=== PATIENT | male | born 1965 | race Caucasian/White ===

== ENCOUNTER → 2020-04-23 11:26 | Outpatient (CLI) | payer OTHER, SELFPAY ==
[2020-04-23 14:02] LABS: Alanine Aminotransferase 114 IU/L (<50); Albumin 4.7 g/dL (3.5-5.0); Albumin Globulin Ratio 1.5 (1.0-2.8); Alkaline Phosphatase 86 U/L (38-126); Aspartate Aminotransferase 71 IU/L (17-59); BUN Creatinine Ratio 16.9 (6-22); Blood Urea Nitrogen 15 mg/dL (9-20); Calcium 9.7 mg/dL (8.4-10.2); Carbon Dioxide 27 mmol/L (22-32); Chloride 99 mmol/L (98-107); Creatine Kinase 118 U/L (55-170); Estimated Glomerular Filt Rate > 60.0 mL/min (>60); Globulin 3.2 g/dL (1.7-4.1); Glucose 87 mg/dL (70-100); HEMOLYSIS < 15 (0-50); Potassium 4.1 mmol/L (3.4-5.1); Sodium 137 mmol/L (137-145); Total Protein 7.9 g/dL (6.3-8.2)
== END ==
PROVIDERS: PCP Family Medicine; Referring Provider Family Medicine; Visit Provider Family Medicine
DX: R25.2 Cramp and spasm (principal)
CPT/HCPCS: 36415; 80053; 82550

== ENCOUNTER → 2020-08-01 10:05 | Outpatient (CLI) | payer OTHER, SELFPAY ==
[2020-08-01 12:26] LABS: Alanine Aminotransferase 64 IU/L (<50); Albumin 4.7 g/dL (3.5-5.0); Albumin Globulin Ratio 1.4 (1.0-2.8); Alkaline Phosphatase 69 U/L (38-126); Aspartate Aminotransferase 44 IU/L (17-59); BUN Creatinine Ratio 15.3 (6-22); Bilirubin Total 0.9 mg/dL (0.2-1.3); Blood Urea Nitrogen 13 mg/dL (9-20); Calcium 9.9 mg/dL (8.4-10.2); Carbon Dioxide 32 mmol/L (22-32); Chloride 97 mmol/L (98-107); Estimated Glomerular Filt Rate > 60.0 mL/min (>60); Globulin 3.3 g/dL (1.7-4.1); Glucose 95 mg/dL (70-100); HEMOLYSIS < 15 (0-50); Potassium 4.4 mmol/L (3.4-5.1); Sodium 135 mmol/L (137-145)
== END ==
PROVIDERS: PCP Family Medicine; Referring Provider Family Medicine; Visit Provider Family Medicine
DX: R79.89 Other specified abnormal findings of blood chemistry (principal)
CPT/HCPCS: 36415; 80053

== ENCOUNTER → 2020-10-04 07:08 | Outpatient (CLI) | payer OTHER, SELFPAY ==
[2020-10-04 08:07] LABS: Alanine Aminotransferase 57 IU/L (<50); Albumin 4.8 g/dL (3.5-5.0); Albumin Globulin Ratio 1.5 (1.0-2.8); Alkaline Phosphatase 71 U/L (38-126); Aspartate Aminotransferase 42 IU/L (17-59); Bilirubin Total 1.7 mg/dL (0.2-1.3); Blood Urea Nitrogen 16 mg/dL (9-20); Calcium 10.2 mg/dL (8.4-10.2); Carbon Dioxide 32 mmol/L (22-32); Chloride 97 mmol/L (98-107); Cholesterol 203 mg/dL (140-199); Estimated Glomerular Filt Rate > 60.0 mL/min (>60); Globulin 3.1 g/dL (1.7-4.1); Glucose 99 mg/dL (70-100); HDL Cholesterol 52 mg/dL (40-60); HEMOLYSIS < 15 (0-50); LDL Cholesterol Calculated 128 mg/dL (<100); Potassium 4.9 mmol/L (3.4-5.1); Sodium 135 mmol/L (137-145); Total Protein 7.9 g/dL (6.3-8.2); Triglycerides 117 mg/dL (35-150)
[2020-10-04 08:09] LABS: Creatinine Urine Random 94.1 mg/dL
[2020-10-04 08:14] LABS: Microalbumin Urine Random < 0.6 mg/dL (0-1.6)
== END ==
PROVIDERS: PCP Family Medicine; Referring Provider Family Medicine; Visit Provider Family Medicine
DX: E78.5 Hyperlipidemia, unspecified (principal); I10 Essential (primary) hypertension; R79.89 Other specified abnormal findings of blood chemistry
CPT/HCPCS: 36415; 80053; 80061; 82043; 82570

== ENCOUNTER → 2020-10-11 14:11 | Outpatient (CLI) | payer OTHER, SELFPAY ==
--- NOTE | 2020-10-11 14:11 | DI.US.S_ITS ---
PROCEDURE: US ABDOMEN LIMITED INDICATIONS: Elevated LFT and bilirubin TECHNIQUE: Real-time focused scanning was performed of the abdomen, with image documentation. COMPARISON: None. FINDINGS: Normal appearance of the liver. No gallstones identified. Normal gallbladder wall. No pericholecystic fluid. Negative sonographic Antoine sign. No biliary dilatation. Pancreas not well visualized. IMPRESSION: No source for elevated LFTs identified. Dictated by: Rommel Clemons [facility] Interpreted: Hema Duke MD on 10/11/2020 at 14:55 Approved by: Hema Duke M.D. on 10/11/2020 at 15:13
== END ==
PROVIDERS: PCP Family Medicine; Referring Provider Family Medicine; Visit Provider Family Medicine
DX: R79.89 Other specified abnormal findings of blood chemistry (principal)
CPT/HCPCS: 76705

== ENCOUNTER → 2020-10-16 06:58 | Outpatient (CLI) | payer OTHER, SELFPAY ==
[2020-10-16 08:03] LABS: Add Manual Diff / Slide Review NO; Basophils Absolute Auto 100 /uL (0-100); Eosinophils Absolute Auto 300 /uL (0-450); Eosinophils Percent Auto 6.3 % (2-4); Hematocrit 44.4 % (41-53); Hemoglobin 15.4 g/dL (13.5-17.5); Lymphocytes Absolute Auto 2100 /uL (1100-4500); Lymphocytes Percent Auto 41.6 % (25-40); Mean Corpuscular HGB Conc 34.7 % (30-36); Mean Corpuscular Hemoglobin 32.6 PG (26-34); Mean Corpuscular Volume 93.9 fL (80-100); Monocytes Absolute Auto 600 /uL (0-900); Monocytes Percent Auto 11.1 % (3-14); Neutrophils Absolute Auto 2000 /uL (1500-7000); Platelet Count 292 X10^3/uL (150-400); Red Blood Cell Count 4.73 X10^6/uL (4.5-5.9); Red Cell Distribution Width 12.4 % (11.6-14.8)
[2020-10-16 08:32] LABS: Bilirubin Total 1.1 mg/dL (0.2-1.3)
== END ==
PROVIDERS: PCP Family Medicine; Referring Provider Family Medicine; Visit Provider Family Medicine
DX: E80.6 Other disorders of bilirubin metabolism (principal); R79.89 Other specified abnormal findings of blood chemistry
CPT/HCPCS: 36415; 82247; 82248; 85025

== ENCOUNTER → 2020-11-22 09:28 | Outpatient (CLI) | payer OTHER, SELFPAY ==
[2020-11-22 11:26] LABS: COVID19 -Nasal RAPID Negative (Negative)
== END ==
PROVIDERS: PCP Family Medicine; Visit Provider Surgery
DX: Z20.822 Contact with and (suspected) exposure to COVID-19 (principal)
CPT/HCPCS: 87635; C9803

== ENCOUNTER 2020-11-25 08:10 | Day surgery (SDC) | payer OTHER, SELFPAY ==
[2020-11-25 08:35] VITALS: BP 136/90; PULSE 62; RESP 16; TEMP 36.1; O2SAT 98; BMI 25.5
[2020-11-25] MEDS: LACTATED RINGERS 1,000 ML 200 ML IV (08:35)
--- NOTE | 2020-11-25 09:01 | PM.HP.1 ---
History of Present Illness History of Present Illness Date Patient Seen: 11/25/20 Time Patient Seen: 09:02 Chief complaint: SCREENING COLONOSCOPY Narrative: The patient presents for colorectal sreening. He had a previous colonoscopy 4 years ago that was significant for multiple benign polyps.. No personal or family history of colon cancer. On further history denies any recent gastrointestinal symptoms. No nausea, vomiting, abdominal pain, loss of appetite, unexplained weight loss, change in bowel habits, diarrhea, constipation, melena, hematochezia, or bright red blood per rectum. Patient History Medical History Anxiety and depression (~2019) Chronic back pain (~2002) Colon polyps (~2016) Elevated LFTs Hyperlipidemia Hypertension Lumbar spine pain (~2002) Mumps Shoulder pain (~2009) Tinnitus (~2002) Surgical History Anesthesia History of lumbar laminectomy (~2004) History of shoulder surgery (~2014) Family & Social History Family History Father History of heart disease Social History: household members spouse Tobacco & Substance use: Smoking Status Never smoker alcohol intake current alcohol intake frequency 0-2 drinks per day Substance Use Type does not use Meds Home Medications and Allergies Home Medications Medication Instructions Recorded Confirmed Type acetaminophen 120 mg-codeine 12 10 ml PO Q4-6H PRN 08/01/20 11/25/20 History mg/5 mL oral solution cyclobenzaprine 10 mg tablet 10 mg PO TID PRN 08/01/20 11/25/20 History ibuprofen 600 mg tablet 600 mg PO Q8H PRN 08/01/20 11/25/20 History lisinopril 10 1 tab PO DAILY 08/01/20 11/25/20 History mg-hydrochlorothiazide 12.5 mg tablet mecobalamin (vitamin B12) 1,000 1,000 mcg PO DAILY 08/01/20 11/25/20 History mcg chewable tablet multivitamin 1 tab PO DAILY 08/01/20 11/25/20 History gabapentin 300 mg PO BEDTIME 11/25/20 11/25/20 History Allergies Allergy/AdvReac Type Severity Reaction Status Date / Time No Known Drug Allergies Allergy Verified 11/25/20 08:28 Review of Systems Review of Systems ROS: Yes All systems reviewed with the patient and are negative except as otherwise documented Exam Vital Signs (past 8 hours): - 11/25/20 08:35 Temperature 97 F L Pulse Rate 62 Respiratory Rate 16 Blood Pressure 136/90 Pulse Oximetry 98 Oxygen Delivery Method Room Air Narrative Exam Narrative: GENERAL-well developed adult male, no acute distress HEENT-no scleral icterus, hearing intact NECK-no JVD, trachea midline CVS- regular rate, no peripheral edema RESP-unlabored respiratory effort, no audible wheezing GI-soft, nontender nondistended MSK-no cyanosis or clubbing, extremities without deformity SKIN-warm, dry NEURO-alert and oriented, no focal deficits PYSCH-Appropriate mood and affect Assessment & Plan Assessment & Plan narrative: The patient requires colorectal screening and colonoscopy is recommended. Technical details were discussed. Risks, benefits, alternatives explained. Risks including but not limited to myocardial infarction, aspiration, bleeding, pain, missed lesion, incomplete examination, need for further radiographic studies, colonic perforation, and need for major abdominal surgery were discussed. All questions were answered to their satisfaction, and they are in agreement with this plan.
[2020-11-25] MEDS: fentaNYL 250 MCG/5 ML INJ IV (09:05)
[2020-11-25] MEDS: MIDAZOLAM 5 MG/5 ML VIAL IV (09:05)
[2020-11-25 09:30] VITALS: BP 123/82; PULSE 53; RESP 12; TEMP 36.1; O2SAT 96
--- NOTE | 2020-11-25 09:31 | PM.OP.ENDO ---
Operative Date/Time/Diagnoses Date of procedure: 11/25/20 Time of procedure: 09:31 Pre-op diagnosis: Personal history of colonic polyps Post-op diagnosis: same Procedure & Clinicians Study performed: Colonoscopy Same procedure as scheduled: Yes Indications: Personal history of colonic polyps Surgeon: Jass Nieves Procedure Notes Procedure in detail: Medications: Conscious sedation using 5mg IV midazolam and 150mcg IV of fentanyl The history and physical was performed/updated and the patient is ASA class is 2. The procedure was discussed in detail with the patient. Potential risks complications including infection, bleeding, missed diagnosis, perforation, need for surgery, and were explained. Their questions were answered and informed consent was obtained. Patient was brought to the procedure room and placed standard monitoring equipment. The patient's vital signs were monitored continuously throughout the entire procedure. Prior to starting time-out was performed. The patient was placed in the left lateral recumbent position. Procedural sedation was administered. Examination began with a thorough inspection of the perianal area there was no evidence of fissures, fistulae, external hemorrhoids or cutaneous malignancy. The colonoscopy scope was then placed into the anal canal and was advanced to the cecum, which was identified by the ileocecal valve, the appendiceal orifice and the confluence of the taenia. The scope was then slowly withdrawn examining colon thoroughly in all directions, irrigating it of any residual stool. -No masses or polyps -Sigmoid diverticulosis The patient tolerated the procedure well. They will be discharged once criteria are met. The prep was of good/excellent quality. The withdrawl time was 7 minutes. The sedation time was 20 minutes. Impression: Normal colonoscopy Post-procedure Recommendations: Colonscopy in 10 years Disposition: same day surgery
[2020-11-25 09:35] VITALS: BP 113/68; PULSE 50; RESP 12; O2SAT 95
[2020-11-25 09:40] VITALS: BP 108/73; PULSE 51; RESP 14; TEMP 36.1; O2SAT 98
[2020-11-25 10:11] VITALS: BP 101/65; PULSE 51; RESP 13; TEMP 35.8; O2SAT 98
== END 2020-11-25 10:17 | disposition home or self-care (01) ==
PROVIDERS: PCP Family Medicine; Referring Provider Family Medicine; Visit Provider Surgery
PROC: 0DJD8ZZ Inspection of Lower Intestinal Tract, Via Natural or Artificial Opening Endoscopic (ICD-10-PCS; CPT 45378; principal; 2020-11-25 09:15)
DX: Z12.11 Encounter for screening for malignant neoplasm of colon (principal); Z86.010 Personal history of colon polyps; F41.9 Anxiety disorder, unspecified; F32.9 Major depressive disorder, single episode, unspecified; E78.5 Hyperlipidemia, unspecified; I10 Essential (primary) hypertension; K57.30 Diverticulosis of large intestine without perforation or abscess without bleeding
CPT/HCPCS: 45378; 99152; J2250; J3010

== ENCOUNTER → 2021-08-18 12:15 | Outpatient (CLI) | payer OTHER, SELFPAY ==
--- NOTE | 2021-08-18 12:19 | DI.MRI.S_ITS ---
PROCEDURE: MR SHOULDER LT WO CON INDICATIONS: BURSITIS TECHNIQUE: Noncontrast oblique coronal T2 fast spin echo with fat saturation, oblique sagittal T1 spin echo and T2 fast spin echo with fat saturation, axial T1 spin echo and T2 fast spin echo with fat saturation through the shoulder. COMPARISON: [facility], CR, XR SHOULDER 2+ VIEWS LEFT, 05/02/2021, 9:45. FINDINGS: Image quality: Excellent. Rotator cuff: Low-grade articular and bursal surface partial thickness tear involving distal supraspinatus at its insertion on the humeral head is seen extending to musculotendinous junction. Distal infraspinatus tendinosis is noted. Distal subscapularis tendinosis and low-grade intrasubstance partial-thickness tear is seen. No full-thickness rotator cuff tendon rupture. infraspinatus, and subscapularis tendons appear intact throughout. Sagittal images demonstrate no significant muscle atrophy. Bones and bursae: No bone marrow contusions or fractures. Acromioclavicular joint space is preserved. Glenohumeral joint osteoarthritic changes are seen with joint space narrowing. Subcortical cyst formation in superior anterior glenoid is seen Small to moderate amount of subacromial subdeltoid bursal fluid is seen. No gross loose bodies. Capsule and soft tissues: Labrum is grossly intact. The glenohumeral ligaments are intact. The long head of the biceps tendon demonstrates normal location and morphology. The rotator interval appears normal, without fibrosis. The coracohumeral ligament is normal in thickness. IMPRESSION: 1. Tendinosis and low-grade articular and bursal surface partial thickness tear involving distal supraspinatus. Distal infraspinatus tendinosis. Tendinosis and very low-grade intrasubstance partial-thickness tear involving distal subscapularis. No full-thickness rotator cuff tendon rupture. 2. Mild glenohumeral joint osteoarthritis. No marrow edema. No fracture or dislocation. 3. No definite focal labral tear is seen. 4. Small to moderate amount of subacromial subdeltoid bursal fluid. Dictated by: Milan Garcia M.D. on 08/18/2021 at 13:48 Approved by: Milan Garcia M.D. on 08/18/2021 at 14:03
== END ==
PROVIDERS: PCP Internal Medicine; Referring Provider Orthopaedic Surgery; Visit Provider Orthopaedic Surgery
DX: M75.52 Bursitis of left shoulder (principal); M19.012 Primary osteoarthritis, left shoulder; M75.112 Incomplete rotator cuff tear or rupture of left shoulder, not specified as traumatic
CPT/HCPCS: 73221

== ENCOUNTER → 2021-10-14 10:33 | Outpatient (CLI) | payer OTHER, SELFPAY ==
[2021-10-14 13:11] LABS: COVID19 -Nasal RAPID Negative (Negative)
== END ==
PROVIDERS: PCP Internal Medicine; Referring Provider Orthopaedic Surgery; Visit Provider Family Medicine Sleep Medicine
DX: Z20.822 Contact with and (suspected) exposure to COVID-19 (principal)
CPT/HCPCS: 87635; C9803

== ENCOUNTER 2021-10-16 06:11 | Day surgery (SDC) | payer OTHER, SELFPAY ==
[2021-10-13 15:11] VITALS: BMI 25.7
[2021-10-16] VITALS (7 sets, daily range): BP systolic 132–148; BP diastolic 56–86; PULSE 52–85; RESP 16–18; TEMP 35.9–36.6; O2SAT 94–100; BMI 25.7
--- NOTE | 2021-10-16 07:34 | PM.PREOP ---
Pre-operative Note COVID-19 Criteria for continued procedure: Possibility delay results in more complex future surgery or treatment, Increased loss of function, Continuing or worsening of significant or severe pain and Delay expected to result in less-positive ultimate med/surg outcome Interval Note History & Physical reviewed/Exam performed by Physician: Yes Changes to H&P: No
[2021-10-16] MEDS: CEFAZOLIN 2 GM/20 ML SYRINGE IV (08:05)
--- NOTE | 2021-10-16 08:27 | SUR.OPER ---
Beach chair with [employer]tron shoulder positioner. Lower body on padded OR bed. Head in foam padded head cradle, secured with straps. Non-operative arm secured <90 degrees abduction. Pillow under knees. Safety belt at thigh. Cloth tape over blanket over lower legs.
[2021-10-16] MEDS: BUPIVACAINE 0.5% (PF) 30 ML, EPINEPHrine 0.15 MG INJ (08:34)
[2021-10-16] MEDS: SODIUM CHLORIDE IRRIG SOLUTION 3,000 ML, EPINEPHrine 1 MG IRR (08:36)
--- NOTE | 2021-10-16 09:10 | PM.OP.1 ---
Operative Date/Time/Diagnoses Date of procedure: 10/16/21 Time of procedure: 08:00 Pre-op diagnosis: Left shoulder partial rotator cuff tear as well as impingement Post-op diagnosis: same (Mild partial rotator cuff tear signs of previous anterior labral repair) Procedure & Clinicians Procedure: Left shoulder arthroscopic extensive debridement as well as subacromial decompression with blockage of suprascapular nerve Same procedure as scheduled: Yes Indications: Left shoulder pain unresponsive to conservative treatment with MRI findings consistent with partial rotator cuff tear Surgeon: Armando Cannon Risk Consulting Treasury Director: Fatmata Lowe Anesthesia Type: General Operative Notes Findings: No sign of any sign of articular sided partial rotator cuff tear. Patient had some mild fraying to the bursal aspect of the rotator cuff. No sign of any high-grade tears or full-thickness tears. Patient showed signs of a previous anterior labral repair. Some of that suture material had cut out of the labrum was still attached to the glenoid. The anterior-inferior labrum was intact with no sign of any Bankart tear. Some tearing to the glenohumeral ligament anteriorly. No sign of any significant SLAP tear. No sign of any proximal biceps tearing. Did have some loose suture material in the glenohumeral joint but no sign of any loose bodies. Patient did have arthritic changes to the glenoid as well as humeral head. Had progressed more on the glenoid aspect particularly to the anterior aspect of the glenoid. Subacromial space as mentioned above showed some partial tearing to the bursal aspect of the rotator cuff. Signs of a previous distal clavicle excision. Possible previous subacromial decompression but still some signs of impingement lesions in the acromial arch. Closure Type: primary Estimated Blood Loss (mL): 5 Procedure in detail: On date of service, Patient was met in the holding area. The operative site was signed and witnessed by the OR staff. The surgeries once again discussed with the patient and any remaining questions they had were answered fully. Patient was taken back to the operating theater and placed on the operating table in a supine position. Great care was taken to ensure that all bony prominences were properly padded. Patient was then placed into the beach chair position. The head and neck were properly positioned and secured. A timeout was performed verifying patient's name, procedure, and the operative site. The upper extremity was then prepped and draped in the normal sterile fashion. Previously, the bony anatomy and portal sites were marked out as well as injected with Marcaine with epinephrine. An 11 blade was used to make an incision in the posterior aspect of the shoulder. The camera was placed, and a diagnostic shoulder scope was performed. Findings listed above. Next under direct visualization, a anterior portal was made. A grasper was brought in through the anterior portal and the loose suture material was removed. Shoulder was stressed and there was no sign of any anterior translation. No sign of any obvious recurrent Bankart tear. Shaver was used to debride the degenerative changes to the labrum as well as the shaver was used to debride some of the tearing of the glenohumeral ligament. Next the camera was placed into the subacromial space. A lateral portal was obtained under direct visualization. A combination of the shaver and vapor wand, a debridement of the inflamed tissue as well as inflamed bursa was performed. The lateral gutter was also cleaned out. This gave us good visualization of the bursal aspect of the rotator cuff as well as the acromial arch. There was an obvious impingement lesion in the acromial arch. Shaver was used to remove any inflamed bursal tissue in the subacromial space as well as the subdeltoid space. Shaver was also used to debride the partial tearing to the bursal aspect of the rotator cuff. Next we turned our attention to the subacromial decompression. Next, a mechanical rasp was then used to do a subacromial decompression. This allowed us to convert the acromion to a type I acromial. This also allowed us to shave down the bony lesion in the acromial space. The rasp was placed into the lateral portal as well as the anterior portal in order to do a complete subacromial decompression. We next turned our attention to the distal clavicle. Using the shaver in the vapor wand we were able to clean out all the soft tissue around the distal clavicle as well as into the a.c. joint. This gave us good visualization of the AC joint. Patient had signs of a previous distal clavicle excision and there was still good space between the distal clavicle and acromion. Did not see any signs of any recurrent AC joint arthritis. Shoulder was taken through range of motion and no signs of any additional impingement. The bursal aspect of the rotator cuff was free of any high-grade tears or full-thickness tears. A shaver had been previously used to debride any mild partial tearing to the bursal aspect of the rotator cuff. Next, the suprascapular nerve was blocked. Patient's shoulder was then cleaned dried and dressed and patient was taken to the PACU in stable condition. Complications: none Post-operative Condition: stable Disposition: PACU Plan for aftercare: Patient will follow our postoperative protocol for subacromial decompression
[2021-10-16] MEDS: OXYCODONE IR 5 MG TABLET PO (09:50)
--- NOTE | 2021-10-16 10:07 | SUR.PHASEII ---
discharge instructions reviewed with pt and he verbalized understanding.
== END 2021-10-16 10:25 | disposition home or self-care (01) ==
PROVIDERS: PCP Internal Medicine; Referring Provider Internal Medicine; Visit Provider Orthopaedic Surgery
PROC: (CPT 29827; principal; 2021-10-16 07:45)
DX: M75.112 Incomplete rotator cuff tear or rupture of left shoulder, not specified as traumatic (principal); M75.42 Impingement syndrome of left shoulder; I10 Essential (primary) hypertension
CPT/HCPCS: 29823; 29826; J0171; J0690; J1100; J2250; J2704; J3010

== ENCOUNTER → 2022-04-17 09:16 | Outpatient (CLI) | payer OTHER, SELFPAY ==
[2022-04-17 11:42] LABS: Add Manual Diff / Slide Review NO; Basophils Absolute Auto 100 /uL (0-100); Basophils Percent Auto 1.2 % (0-2); Eosinophils Absolute Auto 300 /uL (0-450); Eosinophils Percent Auto 6.6 % (2-4); Hematocrit 45.9 % (41-53); Lymphocytes Absolute Auto 1800 /uL (1100-4500); Lymphocytes Percent Auto 36.1 % (25-40); Mean Corpuscular HGB Conc 34.8 % (30-36); Mean Corpuscular Hemoglobin 32.9 PG (26-34); Mean Corpuscular Volume 94.4 fL (80-100); Monocytes Absolute Auto 500 /uL (0-900); Monocytes Percent Auto 10.7 % (3-14); Neutrophils Absolute Auto 2300 /uL (1500-7000); Neutrophils Percent Auto 45.4 % (50-75); Platelet Count 281 X10^3/uL (150-400); Red Blood Cell Count 4.87 X10^6/uL (4.5-5.9); Red Cell Distribution Width 12.5 % (11.6-14.8); White Blood Cell Count 5.1 X10^3/uL (4.5-11.0)
[2022-04-17 12:02] LABS: HEMOLYSIS < 15 (0-50); Iron 192 ug/dL (49-181)
[2022-04-17 12:03] LABS: Alanine Aminotransferase 63 IU/L (<50); Albumin 4.6 g/dL (3.5-5.0); Albumin Globulin Ratio 1.4 (1.0-2.8); Alkaline Phosphatase 57 U/L (38-126); Aspartate Aminotransferase 40 IU/L (17-59); BUN Creatinine Ratio 13.4 (6-22); Bilirubin Total 1.1 mg/dL (0.2-1.3); Blood Urea Nitrogen 11 mg/dL (9-20); Calcium 9.4 mg/dL (8.4-10.2); Carbon Dioxide 28 mmol/L (22-32); Chloride 101 mmol/L (98-107); Cholesterol 230 mg/dL (140-199); Estimated Glomerular Filt Rate > 60 mL/min (>60); Globulin 3.3 g/dL (1.7-4.1); Glucose 92 mg/dL (70-100); HDL Cholesterol 45 mg/dL (40-60); HEMOLYSIS < 15 (0-50); LDL Cholesterol Calculated 160 mg/dL (<100); Potassium 4.3 mmol/L (3.4-5.1); Sodium 139 mmol/L (137-145); Total Protein 7.9 g/dL (6.3-8.2); Triglycerides 126 mg/dL (35-150)
[2022-04-17 12:13] LABS: Percent Iron Saturation 49 % (20-50); Total Iron Binding Capacity 390 ug/dL (261-462); Transferrin 284 mg/dL (206-381)
[2022-04-17 12:33] LABS: Prostate Specific Antigen 0.554 ng/mL (0.10-4.00)
[2022-04-17 12:52] LABS: Vitamin B12 500 pg/mL (239-931)
== END ==
PROVIDERS: PCP Family Medicine; Referring Provider Family Medicine; Visit Provider Family Medicine
DX: D64.9 Anemia, unspecified (principal); E78.5 Hyperlipidemia, unspecified; I10 Essential (primary) hypertension; Z00.00 Encounter for general adult medical examination without abnormal findings
CPT/HCPCS: 36415; 80053; 80061; 82607; 83540; 83550; 84153; 85025

== ENCOUNTER → 2023-01-18 09:10 | Outpatient (CLI) | payer OTHER, SELFPAY ==
--- NOTE | 2023-01-18 09:14 | DI.RAD.S_ITS ---
PROCEDURE: XR LUMBAR SPINE MIN 4V INDICATIONS: low back pain TECHNIQUE: 5 views of the lumbar spine were acquired, including bilateral oblique views. COMPARISON: None. FINDINGS: Bones: 5 nonrib-bearing vertebrae are present. There is normal bony alignment. No acute vertebral body compression fractures. Multilevel spondylosis. Minimal disc space loss at L4-5 and L5-S1 with associated degenerative endplate changes and anterior osteophyte formation. Mild mid and lower lumbar facet arthropathy. No suspicious bony lesions. Soft tissues: Overlying bowel gas pattern is normal. No suspicious soft tissue calcifications. Oblique images: No pars defects. IMPRESSION: Lumbar spine without acute osseous abnormalities. Mild multilevel lumbar spondylosis most pronounced at L4-5 and L5-S1. Dictated by: Viktor Osei M.D. on 01/18/2023 at 11:31 Approved by: Viktor Osei M.D. on 01/18/2023 at 11:33
== END ==
PROVIDERS: PCP Family Medicine; Referring Provider Anesthesiology; Visit Provider Anesthesiology
DX: M47.816 Spondylosis without myelopathy or radiculopathy, lumbar region (principal); M47.817 Spondylosis without myelopathy or radiculopathy, lumbosacral region; M54.50 Low back pain, unspecified
CPT/HCPCS: 72110

== ENCOUNTER 2023-01-27 13:50 | Outpatient (CLI) | payer OTHER, SELFPAY ==
--- NOTE | 2023-01-27 13:51 | DI.RAD.S_ITS ---
PROCEDURE: PAIN L INTERLAMINAR/CAUDAL INJ INDICATIONS: RADICULOPATHY COMPARISON: [facility], CR, XR LUMBAR SPINE MIN 4V, 01/18/2023, 9:09. FINDINGS: Fluoroscopic spot filming was performed to verify placement of spinal needles at the sacrum level(s), as labeled on the films. Appropriate location(s) of the needle tip(s) was confirmed by injection of iodinated contrast. IMPRESSION: Fluoroscopy for pain management. Dictated by: Adama Carr M.D. on 01/27/2023 at 15:16 Approved by: Adama Carr M.D. on 01/27/2023 at 15:16
[2023-01-27 14:02] VITALS: BP 129/82; PULSE 61; RESP 18; TEMP 36.2; O2SAT 98
[2023-01-27 14:30] VITALS: BP 142/83; PULSE 58; RESP 24; O2SAT 98
[2023-01-27] MEDS: DEXAMETHASONE 10 MG/ML VIAL 20 MG INJ (14:33)
[2023-01-27] MEDS: IOPAMIDOL 15 ML VIAL 3 ML INJ (14:34)
[2023-01-27 14:35] VITALS: BP 149/89; PULSE 57; RESP 12; O2SAT 98
[2023-01-27] MEDS: BUPIVACAINE 0.25% (PF) VIAL 2 ML INJ (14:35)
[2023-01-27 14:40] VITALS: BP 140/89; PULSE 59; RESP 14; O2SAT 98
[2023-01-27 14:46] VITALS: BP 165/86; PULSE 57; RESP 18; O2SAT 98
--- NOTE | 2023-01-27 14:49 | P.PCN_ITS ---
Date/Time/Diagnoses Date of procedure: 01/27/23 Time of procedure: 14:30 Procedure Notes Physician: Javier Zamora Total Fluoroscopy time (seconds): 14 Total sedation minutes: 0 Procedure in detail & Post-procedure care: Caudal Epidural Steroid Injection Indications: Luis Manuel is presenting for treatment of lumbar radiculopathy with low back and leg pain. Preoperative diagnosis: Lumbar radiculopathy Postoperative diagnosis: Same Focused Examination: Ax3 Mood and affect are normal Vital Signs: VSS Consent: Following review of allergies and potential side effects/complications, including, but not necessarily limited to, infection, allergic reaction, local tissue breakdown, stroke, temporary or permanent nerve injury, paralysis, and possible , the patient indicated that they understood and agreed to proceed.? An informed consent document was signed by the patient, witnessed by a nurse and placed in the patient's chart.? Additionally, other treatment options including medications and physical therapy were reviewed with the patient. All questions were answered. Site was then marked. Anesthesia: Local Position: Prone Monitoring: NIBP, Pulse oximetry, 3 lead EKG Needle used: 17 gauge Touhy with 19 gauge TheraCath Epidural Catheter Contrast: Isovue 300-M 2mL Injectate: Dexamethasone 15 mg with 0.25% bupivacaine 2 mL and normal saline 1.5 mL Technique: The skin was prepped with chloraprep and then draped in a sterile fashion. Time out was performed as per protocol. Oxygen applied via NC. The entry point for entering/approaching the epidural space by a caudal approach through the sacral hiatus was identified. Skin and subcutaneous structures of the needle entry site was then infiltrated with 3 mL of lidocaine 1%. Under AP and lateral control, the needle was guided through the sacral hiatus to the S3 level. The catheter was then advanced to L5 using intermittent fluoroscopy. Contrast was then injected and the spread was consistent with the epidural space. There was no evidence for intravascular or intrathecal uptake. After negative aspiration, the above-mentioned injectate was then slowly administered and the needle withdrawn. The patient expressed no unusual discomfort or paresthesias during needle positioning or injection. Band-Aids applied to injection sites. EBL: less than 1 ml Complications: None Post Procedure: Patient was taken to the recovery and monitored. The patient was provided a Pain Log to continue to record the patient's response to the target- specific procedure prior to the patient's follow-up visit with the referring physician. Patient was stable upon discharge. Detailed post procedure instructions were provided. Patient was asked to call in the event of worsening pain, fever, weakness, numbness or bladder or bowel incontinence.
== END 2023-01-27 14:52 | disposition home or self-care (01) ==
LOC: RAD 13:50
PROVIDERS: PCP Family Medicine; Referring Provider Anesthesiology; Visit Provider Anesthesiology
DX: M54.16 Radiculopathy, lumbar region (principal)
CPT/HCPCS: 62323; J1100; J3490

== ENCOUNTER → 2023-02-08 07:04 | Outpatient (CLI) | payer OTHER, SELFPAY ==
[2023-02-08 08:31] LABS: Alanine Aminotransferase 55 IU/L (<50); Albumin 4.4 g/dL (3.5-5.0); Albumin Globulin Ratio 1.6 (1.0-2.8); Alkaline Phosphatase 61 U/L (38-126); Aspartate Aminotransferase 34 IU/L (17-59); BUN Creatinine Ratio 16.5 (6-22); Bilirubin Total 1.3 mg/dL (0.2-1.3); Blood Urea Nitrogen 14 mg/dL (9-20); Calcium 9.4 mg/dL (8.4-10.2); Carbon Dioxide 29 mmol/L (22-32); Chloride 98 mmol/L (98-107); Cholesterol 250 mg/dL (140-199); Estimated Glomerular Filt Rate > 60 mL/min (>60); Globulin 2.8 g/dL (1.7-4.1); Glucose 98 mg/dL (70-100); HDL Cholesterol 47 mg/dL (40-60); HEMOLYSIS < 15 (0-50); LDL Cholesterol Calculated 161 mg/dL (<100); Potassium 4.5 mmol/L (3.4-5.1); Sodium 134 mmol/L (137-145); Total Protein 7.2 g/dL (6.3-8.2); Triglycerides 209 mg/dL (35-150)
[2023-02-08 08:32] LABS: HEMOLYSIS < 15 (0-50); Iron 222 ug/dL (49-181)
[2023-02-08 08:42] LABS: Percent Iron Saturation 58 % (20-50); Total Iron Binding Capacity 380 ug/dL (261-462); Transferrin 266 mg/dL (206-381)
== END ==
PROVIDERS: PCP Family Medicine; Referring Provider Family Medicine; Visit Provider Family Medicine
DX: E78.5 Hyperlipidemia, unspecified (principal); D64.9 Anemia, unspecified
CPT/HCPCS: 36415; 80053; 80061; 83540; 83550

== ENCOUNTER → 2023-06-19 08:11 | Outpatient (CLI) | payer OTHER, SELFPAY ==
[2023-06-19 08:57] LABS: Alanine Aminotransferase 41 IU/L (<50); Albumin 4.4 g/dL (3.5-5.0); Albumin Globulin Ratio 1.6 (1.0-2.8); Alkaline Phosphatase 52 U/L (38-126); Aspartate Aminotransferase 36 IU/L (17-59); BUN Creatinine Ratio 13.4 (6-22); Bilirubin Total 1.4 mg/dL (0.2-1.3); Blood Urea Nitrogen 11 mg/dL (9-20); Calcium 9.7 mg/dL (8.4-10.2); Carbon Dioxide 29 mmol/L (22-32); Chloride 93 mmol/L (98-107); Cholesterol 194 mg/dL (140-199); Estimated Glomerular Filt Rate > 60 mL/min (>60); Globulin 2.8 g/dL (1.7-4.1); Glucose 99 mg/dL (70-100); HDL Cholesterol 45 mg/dL (40-60); HEMOLYSIS < 15 (0-50); LDL Cholesterol Calculated 117 mg/dL (<100); Potassium 4.4 mmol/L (3.4-5.1); Sodium 130 mmol/L (137-145); Total Protein 7.2 g/dL (6.3-8.2); Triglycerides 162 mg/dL (35-150)
[2023-06-19 08:59] LABS: HEMOLYSIS < 15 (0-50); Iron 208 ug/dL (49-181)
[2023-06-19 09:10] LABS: Percent Iron Saturation 53 % (20-50); Total Iron Binding Capacity 396 ug/dL (261-462); Transferrin 304 mg/dL (206-381)
== END ==
PROVIDERS: Family Provider Internal Medicine; PCP Internal Medicine; Referring Provider Family Medicine; Visit Provider Family Medicine
DX: R79.89 Other specified abnormal findings of blood chemistry (principal); E78.5 Hyperlipidemia, unspecified; I10 Essential (primary) hypertension
CPT/HCPCS: 36415; 80053; 80061; 83540; 83550

== ENCOUNTER → 2023-07-20 13:12 | Outpatient (CLI) | payer OTHER, SELFPAY ==
--- NOTE | 2023-07-20 13:14 | DI.MRI.S_ITS ---
PROCEDURE: MR LUMBAR SPINE WO CON INDICATIONS: Lumbar radiculopathy TECHNIQUE: Noncontrast sagittal T1 spin echo and T2 fast echo, sagittal STIR, and T2 fast spin echo through the lumbar spine. In cases with scoliosis, additional coronal T2 fast spin echo may be performed. COMPARISON: [facility], MR, MR LUMBAR SPINE WITH/WITHOUT CONTRAST, 12/18/2020, 16:18. [facility], MR, MR LUMBAR SPINE WITHOUT CONTRAST, 09/23/2019, 8:18. [facility], CR, XR LUMBAR SPINE MIN 4V, 01/18/2023, 9:09. FINDINGS: Image quality: Excellent. Alignment and Curvature: There is minimal retrolisthesis seen at the L5-S1 level. Bone Marrow: Marrow is of normal overall signal. No acute vertebral body compression fractures. Spinal Cord: Conus medullaris terminates at the L1 level. Visualized cord demonstrates normal signal and size. Paraspinous Soft Tissues: No paravertebral masses. Incidental note is made of a retroaortic left renal vein. T12-L1: Normal appearance. L1-L2: Reactive marrow endplate changes are seen anteriorly, which are hyperintense on T1-weighted and T2-weighted imaging and most consistent with fatty metaplasia (Modic type II changes). No significant neural foraminal or central canal narrowing can be seen. No significant change from the prior. L2-L3: The disc height is well-preserved. Loss of disc signal is seen at this level. Mild generalized disc bulge is seen. Mild facet joint hypertrophy is seen. There is mild right-sided and no significant left-sided neural foraminal narrowing. Minimal central canal narrowing is seen. When comparison is made with the prior images, these findings are similar. L3-L4: The disc height and disk signal are relatively well-preserved. Moderate generalized disc bulge is seen. Mild to moderate facet hypertrophy is seen. There is moderate right-sided and mild left-sided neural foraminal narrowing. Mild central canal narrowing is seen. When comparison is made with the prior images, these findings are similar. L4-L5: Moderate loss of disc height is seen. Loss of disc signal is seen. Reactive marrow endplate changes are seen anteriorly, which are hyperintense on T1-weighted and T2-weighted imaging and most consistent with fatty metaplasia (Modic type II changes). Moderate disc bulge is seen, which is eccentric to the right. Moderate facet joint hypertrophy is seen. There is moderate left-sided and moderate to severe right-sided neural foraminal narrowing. There is a degree of compression seen upon the exiting right L4 nerve root. Mild central canal narrowing is seen. When comparison is made with the prior images, these findings are similar. L5-S1: Mild loss of disc height is seen. Loss of disc signal is seen. Mild disc bulge is seen, with a central disc protrusion. Mild to moderate facet hypertrophy is seen. There is at least moderate bilateral neural foraminal narrowing seen at this level. Mild central canal narrowing is seen. When comparison is made with the prior images, these findings are similar. IMPRESSION: Multiple levels of lumbar spine degenerative change can be seen, without significant progression compared to the 2020 images. Dictated by: Bello Villatoro M.D. on 07/20/2023 at 15:13 Approved by: Bello Villatoro M.D. on 07/20/2023 at 15:18
== END ==
PROVIDERS: Family Provider Internal Medicine; PCP Family Medicine; Referring Provider Anesthesiology; Visit Provider Anesthesiology
DX: M47.26 Other spondylosis with radiculopathy, lumbar region (principal); M47.27 Other spondylosis with radiculopathy, lumbosacral region
CPT/HCPCS: 72148

== ENCOUNTER 2023-09-08 08:45 | Outpatient (CLI) | payer OTHER, SELFPAY ==
[2023-09-08 09:10] VITALS: BP 153/84; PULSE 64; RESP 20; TEMP 36.3; O2SAT 100
--- NOTE | 2023-09-08 09:30 | DI.RAD.S_ITS ---
PROCEDURE: PAIN L/S TRANSFORAMINAL INJECT INDICATIONS: radiculopathy COMPARISON: [facility], MR, MR LUMBAR SPINE WO CON, 07/20/2023, 13:41. FINDINGS: Fluoroscopic spot filming was performed to verify placement of a spinal needle at the L4-L5 level, as labeled on the films. Appropriate location of the needle tip was confirmed by injection of iodinated contrast. IMPRESSION: Intraprocedural examination within normal limits. Dictated by: Bello Villatoro M.D. on 09/08/2023 at 16:12 Approved by: Bello Villatoro M.D. on 09/08/2023 at 16:13
[2023-09-08 09:31] VITALS: BP 142/94; PULSE 62; RESP 18; O2SAT 98
[2023-09-08 09:36] VITALS: BP 143/91; PULSE 61; RESP 16; O2SAT 98
[2023-09-08] MEDS: DEXAMETHASONE 10 MG/ML VIAL INJ (09:37)
[2023-09-08] MEDS: iopamidoL 15 ML VIAL 3 ML INJ (09:37)
[2023-09-08 09:38] VITALS: BP 143/92; PULSE 58; RESP 12; O2SAT 98
[2023-09-08 09:40] VITALS: BP 149/88; PULSE 55; RESP 18; O2SAT 96
--- NOTE | 2023-09-08 15:22 | P.PCN_ITS ---
Date/Time/Diagnoses Date of procedure: 09/08/23 Time of procedure: 09:30 Procedure Notes Physician: Javier Zamora Total Fluoroscopy time (seconds): 15 Total sedation minutes: 0 Procedure in detail & Post-procedure care: Right L4-5 Transforaminal Epidural Steroid Injection Indications: Luis Manuel is presenting for treatment of lumbar radiculopathy with low back and leg pain. Preoperative diagnosis: Lumbar radiculopathy Postoperative diagnosis: Same Focused Examination: Ax3 Mood and affect are normal Vital Signs: VSS Consent: Following review of allergies and potential side effects/complications, including, but not necessarily limited to, infection, allergic reaction, local tissue breakdown, stroke, temporary or permanent nerve injury, paralysis, and possible , the patient indicated that they understood and agreed to pro ceed.? An informed consent document was signed by the patient, witnessed by a nurse and placed in the patient's chart.? Additionally, other treatment options including medications and physical therapy were reviewed with the patient. All questions were answered. Site was then marked. Anesthesia: Local Position: Prone Monitoring: NIBP, Pulse oximetry, 3 lead EKG Needle used: 22G 5 inch spinal needle Contrast: Isovue 300M Injectate: 10 mg Dexamethasone mixed with 1% lidocaine 1 ml and normal saline 1 mL Technique: The skin was prepped with chloraprep and draped in a sterile fashion. Time out was performed as per protocol. Oxygen applied via NC. Skin and subcutaneous structures of the needle entry site were infiltrated with 3mL of lidocaine 1%. Under fluoroscopic guidance, using an ipsilateral oblique view,?a 22 gauge 5 inch needle was advanced to the base of the right L4?pedicle.? The needle was advanced to the superio-posterior aspect of the neural foramen under lateral view.? Oblique and AP views were rechecked. No paresthesias noted by the patient during needle placement. In AP view and utilizing real-time digital subtraction fluoroscopy, 2 ml contrast was slowly injected. Epidural spread was observed without evidence for intravascular nor intrathecal uptake. Contrast spread was seen craniocaudally. The above injectate was then administered without paresthesias and the needle was subsequently withdrawn. Band-Aids applied to injection sites. EBL: less than 1 ml Complications: None Post Procedure: Patient was taken to the recovery and monitored. The patient was provided a Pain Log to continue to record the patient's response to the target- specific procedure prior to the patient's follow-up visit with the referring physician. Patient was stable upon discharge. Detailed post procedure instructions were provided. Patient was asked to call in the event of worsening pain, fever, weakness, numbness or bladder or bowel incontinence.
== END 2023-09-08 09:45 | disposition home or self-care (01) ==
LOC: RAD 08:46
PROVIDERS: Family Provider Internal Medicine; PCP Family Medicine; Referring Provider Anesthesiology; Visit Provider Anesthesiology
DX: M54.16 Radiculopathy, lumbar region (principal)
CPT/HCPCS: 64483; J1100

== ENCOUNTER 2023-11-30 09:45 | Outpatient (RCR) | payer OTHER, SELFPAY ==
--- NOTE | 2023-10-01 14:22 | PT.OIE ---
Current Diagnoses Pain in right shoulder (10/01/23) Stiffness of right shoulder, not elsewhere classified (10/01/23) Past Medical History (Last Reviewed 08/03/23 @ 09:13 by Dax Sandra DO) Anemia Anxiety and depression (~2019) Chronic back pain (~2002) Colon polyps (~2016) Depression Elevated LFTs Encounter for wellness examination in adult Hyperlipidemia Hypertension Impingement syndrome, shoulder, left Lumbar foraminal stenosis Lumbar radiculopathy Lumbar spine pain (~2002) Lumbar spondylosis Medicare annual wellness visit, subsequent Mumps PASCUAL (obstructive sleep apnea) Osteoporosis Shoulder pain (~2009) Spinal stenosis Tinnitus (~2002) Well adult exam Past Surgical History (Last Reviewed 08/03/23 @ 09:13 by Dax Sanrda DO) Anesthesia History of lumbar laminectomy (~2004) History of shoulder surgery (~2014) Hx of arthroscopy of shoulder (~2016) Hx of laminectomy Visit Care Team Role Provider Type Dax Sandra DO Primary Care Provider Physician Specialty: Family Practice Address: [address] [place] [address], [id number] Email: [email or web address] 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 Pt notes insidious onset, no knowledge of initial injury. Pt does have a history of left shoulder injury, with surgical intervention for partial rotator cuff tear and subacromial decompression two years ago. Notes this is a similar pain. Reports fairly significant nightly sleep disturbances, worst when laying on his shoulder. Also hurts with repetitive movements (using screwdriver), reaching behind his back, or overhead movements. PT-OP-C Subjective Start: 10/01/23 13:55 Freq: Status: Active Protocol: Document 10/01/23 11:15 DCW (Rec: 10/01/23 14:22 DCW [id number]) OP-PT Subjective Patient Comments Patient Comments It is really making it fitzpatrick to sleep. Patient Questionnaires Quick Dash- Upper Extremity Quick Dash UE Score 27.27% PT-OP-E Functional Tests Start: 10/01/23 13:55 Freq: Status: Active Protocol: Document 10/01/23 11:15 DCW (Rec: 10/01/23 14:22 DCW [id number]) Functional Tests Apley's Scratch Test Action 3- Left T5 Action 3- Right T8 PT-OP-K Range of Motion Start: 10/01/23 13:55 Freq: Status: Active Protocol: Document 10/01/23 11:15 DCW (Rec: 10/01/23 14:22 DCW [id number]) Shoulder Goniometric Range of Motion Shoulder Right Active Testing Position Standing Flexion 180 Abduction 136 External Rotation at 0 degrees Abduction 44 PT-OP-L Special Tests Start: 10/01/23 13:55 Freq: Status: Active Protocol: Document 10/01/23 11:15 DCW (Rec: 10/01/23 14:22 DCW [id number]) Special Tests Shoulder Special Tests Yergason's Biceps Test Results Mild right LH pain Passive ER Rotator Cuff Test Results Negative Painful Arc Test Results Positive R Lift-Off Rotator Cuff Test Results Mild pain R Baron Michel Impingement Test Results Negative Grind Labrum Test Results Negative Empty Can Test Results Positive R Drop Arm Rotator Cuff Test Results Negative Belly Press Test Results Mild pain R Apprehension Test Test Results Negative PT-OP-M Strength Start: 10/01/23 13:55 Freq: Status: Active Protocol: Document 10/01/23 11:15 DCW (Rec: 10/01/23 14:22 DCW [id number]) Shoulder Strength Shoulder Manual Muscle Testing Right Flexion 4- Good- Abduction (C5) 3+ Fair+ External Rotation 4+ Good+ Internal Rotation 5 Normal Comments Limited by significant pain in abduction PT-OP-Q Treatments Start: 10/01/23 13:55 Freq: Status: Active Protocol: Document 10/01/23 11:15 DCW (Rec: 10/01/23 14:22 DCW [id number]) Therapeutic Exercises Standing Exercises Extension Standing Exercise Name Shoulder Extension Side bilateral Resistance Lv 3 ER/IR Standing Exercise Name ER/IR Side bilateral Resistance Lv 3 PROM Standing Exercise Name Wall slides, wand shoulder abduction Side right PT-OP-T Assessment and Plan Start: 10/01/23 13:55 Freq: Status: Active Protocol: Document 10/01/23 11:15 DCW (Rec: 10/01/23 14:22 DCW [id number]) Physical Therapy Assessment Rehab Potential Rehabilitation Potential Good Evaluation Complexity Number of Personal Factors/Comorbidities 1-2 Number of Body Systems Impaired 1-2 Clinical Presentation at Evaluation Stable Impairments Impairments Activity Tolerance,Functional Activities,Functional Mobility ,Pain,ROM,Soft Tissue Mobility ,Strength Goals Three Impairment Pain limits pt's ability to sleep through the night Half-Way Goal (LTG) Pt to report sleeping undisturbed by pain through the night for at least four nights a week. LTG Duration 11/30/23 Two Impairment Right shoulder abduction limited to 136? Half-Way Goal (LTG) Pt to improve shoulder abduction to >160? in order to return to performing pain- free overhead activities. LTG Duration 11/30/23 One Impairment Pt does not have an appropriate home exercise program Short Term Goal (STG) Pt to be independent and compliant with an appropriate HEP STG Duration 10/30/23 Assessment Summary Assessment Pt presents with signs and symptoms consistent with potential rotator cuff injury/ subacromial impingement of supraspinatus. Pain with resisted abduction, tenderness along subacromial space, overhead and retro reaching pain largely suggestive of r/c involvement. Pt should benefit from skilled intervention focusing on general strengthening of the shoulder girdle, P/AROM, pain- control modalities, and implementation of an appropriate HEP. If pt does not progress as expected, may be beneficial to undergo further advanced imaging to rule in-rule out potential tears. Physical Therapy Plan Frequency and Duration Frequency of Treatment 2x/Week Plan of Care Start Date 10/01/23 Plan of Care End Date 11/30/23 Therapeutic Interventions Therapeutic Interventions Home Exercise Program,Manual Therapy,Orthotic/Prosthetic Management,Patient/Caregiver Education,Soft Tissue Mobilization,Therapeutic Activities,Therapeutic Exercises Modalities Cold Pack/Ice Massage,Electric Stimulation,Hot Packs, Ultrasound Next Visit Focus/Plan Next Note Type Treatment Note Next Visit Plan Shoulder mobility, strengthening, pain-free ROM
--- NOTE | 2023-10-01 14:23 | PT.OPPOC ---
Physical, Occupational & Speech Therapy At [facility] Current Diagnoses Pain in right shoulder (10/01/23) Stiffness of right shoulder, not elsewhere classified (10/01/23) Visit Care Team Role Provider Type Dax Sandra DO Primary Care Provider Physician Specialty: Family Practice Address: [address] [place] [address], [phone] Email: [email or web address] Paradise Tovar MD Attending Provider Non-Staff Family Provider Referring Provider Specialty: Internal Medicine Address: [address] [place] [address],[facility] [address], [place], [address] Email: Plan Of Care PT-OP-T Assessment and Plan Start: 10/01/23 13:55 Freq: Status: Active Protocol: Document 10/01/23 11:15 DCW (Rec: 10/01/23 14:22 DCW [id number]) Physical Therapy Assessment Rehab Potential Rehabilitation Potential Good Evaluation Complexity Number of Personal Factors/Comorbidities 1-2 Number of Body Systems Impaired 1-2 Clinical Presentation at Evaluation Stable Impairments Impairments Activity Tolerance,Functional Activities,Functional Mobility ,Pain,ROM,Soft Tissue Mobility ,Strength Goals Three Impairment Pain limits pt's ability to sleep through the night Building Services Coordinator Goal (LTG) Pt to report sleeping undisturbed by pain through the night for at least four nights a week. LTG Duration 11/30/23 Two Impairment Right shoulder abduction limited to 136? Building Services Coordinator Goal (LTG) Pt to improve shoulder abduction to >160? in order to return to performing pain- free overhead activities. LTG Duration 11/30/23 One Impairment Pt does not have an appropriate home exercise program Short Term Goal (STG) Pt to be independent and compliant with an appropriate HEP STG Duration 10/30/23 Assessment Summary Assessment Pt presents with signs and symptoms consistent with potential rotator cuff injury/ subacromial impingement of supraspinatus. Pain with resisted abduction, tenderness along subacromial space, overhead and retro reaching pain largely suggestive of r/c involvement. Pt should benefit from skilled intervention focusing on general strengthening of the shoulder girdle, P/AROM, pain- control modalities, and implementation of an appropriate HEP. If pt does not progress as expected, may be beneficial to undergo further advanced imaging to rule in-rule out potential tears. Physical Therapy Plan Frequency and Duration Frequency of Treatment 2x/Week Plan of Care Start Date 10/01/23 Plan of Care End Date 11/30/23 Therapeutic Interventions Therapeutic Interventions Home Exercise Program,Manual Therapy,Orthotic/Prosthetic Management,Patient/Caregiver Education,Soft Tissue Mobilization,Therapeutic Activities,Therapeutic Exercises Modalities Cold Pack/Ice Massage,Electric Stimulation,Hot Packs, Ultrasound Next Visit Focus/Plan Next Note Type Treatment Note Next Visit Plan Shoulder mobility, strengthening, pain-free ROM Plan of Care Dates Plan of Care Start Date 10/01/23 Plan of Care End Date 11/30/23 Electronically Signed by: Luis Manuel Hussein, PT 10/01/23 0110 If you are in agreement with this Plan of Care, please return a signed and dated copy. I have reviewed this Plan of Care and certify that the skilled therapy services above are required to meet the patient?s needs. Physician Signature Date Printed Name and Credentials Clinical Instructor Signature Printed Name and Credentials
--- NOTE | 2023-10-05 16:03 | PT.OTN ---
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 Pt notes insidious onset, no knowledge of initial injury. Pt does have a history of left shoulder injury, with surgical intervention for partial rotator cuff tear and subacromial decompression two years ago. Notes this is a similar pain. Reports fairly significant nightly sleep disturbances, worst when laying on his shoulder. Also hurts with repetitive movements (using screwdriver), reaching behind his back, or overhead movements. PT-OP-C Subjective Start: 10/01/23 13:55 Freq: Status: Active Protocol: Document 10/05/23 15:15 DCW (Rec: 10/05/23 16:03 DCW [id number]) OP-PT Subjective Patient Comments Patient Comments It's been not too bad since I 've seen you last, sleeping on it is still rough, but otherwise it hasn't been too bad. PT-OP-E Functional Tests Start: 10/01/23 13:55 Freq: Status: Active Protocol: Document 10/01/23 11:15 DCW (Rec: 10/01/23 14:22 DCW [id number]) Functional Tests Kareney's Scratch Test Action 3- Left T5 Action 3- Right T8 PT-OP-K Range of Motion Start: 10/01/23 13:55 Freq: Status: Active Protocol: Document 10/01/23 11:15 DCW (Rec: 10/01/23 14:22 DCW [id number]) Shoulder Goniometric Range of Motion Shoulder Right Active Testing Position Standing Flexion 180 Abduction 136 External Rotation at 0 degrees Abduction 44 PT-OP-L Special Tests Start: 10/01/23 13:55 Freq: Status: Active Protocol: Document 10/01/23 11:15 DCW (Rec: 10/01/23 14:22 DCW [id number]) Special Tests Shoulder Special Tests Yergason's Biceps Test Results Mild right LH pain Passive ER Rotator Cuff Test Results Negative Painful Arc Test Results Positive R Lift-Off Rotator Cuff Test Results Mild pain R Baron Michel Impingement Test Results Negative Grind Labrum Test Results Negative Empty Can Test Results Positive R Drop Arm Rotator Cuff Test Results Negative Belly Press Test Results Mild pain R Apprehension Test Test Results Negative PT-OP-M Strength Start: 10/01/23 13:55 Freq: Status: Active Protocol: Document 10/01/23 11:15 DCW (Rec: 10/01/23 14:22 DCW [id number]) Shoulder Strength Shoulder Manual Muscle Testing Right Flexion 4- Good- Abduction (C5) 3+ Fair+ External Rotation 4+ Good+ Internal Rotation 5 Normal Comments Limited by significant pain in abduction PT-OP-Q Treatments Start: 10/01/23 13:55 Freq: Status: Active Protocol: Document 10/05/23 15:15 DCW (Rec: 10/05/23 16:03 DCW [id number]) Cardio Equipment Upper Body Ergometer (UBE) Duration (Minutes) 5 RPM 60 Seat Position 11 Height 4 Gym Equipment Therapeutic Ball I's, Y's, T's Exercise Details Prone I's, Y's, T's Ball Size/Color Green - 65 cm 3# Body Position Prone Therapeutic Exercises Supine Exercises Flexion Supine Exercise Name Shoulder flexion /c PVC Side bilateral Resistance 5# Horizontal Adduction Supine Exercise Name Horizontal Adduction Side bilateral Resistance 3# Serratus Punch Supine Exercise Name Serratus Punch Side bilateral Resistance 3# Standing Exercises Rows Standing Exercise Name Rows Side bilateral Resistance Blue Extension Standing Exercise Name Shoulder Extension Side bilateral Resistance Blue Other Exercises Resisted Ambulation Other Exercise Name Resisted UE side-stepping Resistance Green loop Manual Therapy Treatment Soft Tissue Mobilization Periscapular Body Location R Periscapular musclature Mobilization Type Strumming,Sustained Pressure Intensity/Depth Superficial PT-OP-T Assessment and Plan Start: 10/01/23 13:55 Freq: Status: Active Protocol: Document 10/05/23 15:15 DCW (Rec: 10/05/23 16:03 DCW [id number]) Physical Therapy Assessment Impairments Impairments Activity Tolerance,Functional Activities,Functional Mobility ,Pain,ROM,Soft Tissue Mobility ,Strength Goals Three Impairment Pain limits pt's ability to sleep through the night [facility] Goal (LTG) Pt to report sleeping undisturbed by pain through the night for at least four nights a week. LTG Duration 11/30/23 Two Impairment Right shoulder abduction limited to 136? Web Interface Developer Goal (LTG) Pt to improve shoulder abduction to >160? in order to return to performing pain- free overhead activities. LTG Duration 11/30/23 One Impairment Pt does not have an appropriate home exercise program Short Term Goal (STG) Pt to be independent and compliant with an appropriate HEP STG Duration 10/30/23 Assessment Summary Assessment Improved shoulder mobility today, able to perform a much more full ROM. Good tolerance to activity, agreeable to additional HEP. Physical Therapy Plan Frequency and Duration Frequency of Treatment 2x/Week Plan of Care Start Date 10/01/23 Plan of Care End Date 11/30/23 Therapeutic Interventions Therapeutic Interventions Home Exercise Program,Manual Therapy,Orthotic/Prosthetic Management,Patient/Caregiver Education,Soft Tissue Mobilization,Therapeutic Activities,Therapeutic Exercises Modalities Cold Pack/Ice Massage,Electric Stimulation,Hot Packs, Ultrasound Next Visit Focus/Plan Next Note Type Treatment Note Next Visit Plan Shoulder mobility, strengthening, pain-free ROM
--- NOTE | 2023-10-07 15:59 | PT.OTN ---
Current Diagnoses Pain in right shoulder (10/07/23) Stiffness of right shoulder, not elsewhere classified (10/07/23) Physical Therapy Treatment Note PT-OP-A Visit Information Start: 10/01/23 13:55 Freq: Status: Active Protocol: Document 10/07/23 15:15 DCW (Rec: 10/07/23 15:59 DCW [id number]) Out-Patient Physical Therapy Visit Information Visit Information Visit Type Treatment Note Visit Start Time 15:15 Visit Stop Time 16:00 Visit Number 3 Number of BANKING SUPERVISOR Visits 0 Evaluation Information Evaluation Date 10/01/23 PT-OP-B Current Condition Start: 10/01/23 13:55 Freq: Status: Active Protocol: Document 10/01/23 11:15 DCW (Rec: 10/01/23 14:22 DCW [id number]) Current Condition History of Current Condition Onset Date 5 month history Current Complaints Right shoulder pain, stiffness History of Current Condition Pt is a 58 year old male presenting with a ~5 month history of right shoulder pain . Pt notes insidious onset, no knowledge of initial injury. Pt does have a history of left shoulder injury, with surgical intervention for partial rotator cuff tear and subacromial decompression two years ago. Notes this is a similar pain. Reports fairly significant nightly sleep disturbances, worst when laying on his shoulder. Also hurts with repetitive movements (using screwdriver), reaching behind his back, or overhead movements. PT-OP-C Subjective Start: 10/01/23 13:55 Freq: Status: Active Protocol: Document 10/07/23 15:15 DCW (Rec: 10/07/23 15:59 DCW [id number]) OP-PT Subjective Patient Comments Patient Comments Feeling better today, it was a little sore after working it last visit. PT-OP-E Functional Tests Start: 10/01/23 13:55 Freq: Status: Active Protocol: Document 10/01/23 11:15 DCW (Rec: 10/01/23 14:22 DCW [id number]) Functional Tests Kareney's Scratch Test Action 3- Left T5 Action 3- Right T8 PT-OP-K Range of Motion Start: 10/01/23 13:55 Freq: Status: Active Protocol: Document 10/01/23 11:15 DCW (Rec: 10/01/23 14:22 DCW [id number]) Shoulder Goniometric Range of Motion Shoulder Right Active Testing Position Standing Flexion 180 Abduction 136 External Rotation at 0 degrees Abduction 44 PT-OP-L Special Tests Start: 10/01/23 13:55 Freq: Status: Active Protocol: Document 10/01/23 11:15 DCW (Rec: 10/01/23 14:22 DCW [id number]) Special Tests Shoulder Special Tests Yergason's Biceps Test Results Mild right LH pain Passive ER Rotator Cuff Test Results Negative Painful Arc Test Results Positive R Lift-Off Rotator Cuff Test Results Mild pain R Baron Michel Impingement Test Results Negative Grind Labrum Test Results Negative Empty Can Test Results Positive R Drop Arm Rotator Cuff Test Results Negative Belly Press Test Results Mild pain R Apprehension Test Test Results Negative PT-OP-M Strength Start: 10/01/23 13:55 Freq: Status: Active Protocol: Document 10/01/23 11:15 DCW (Rec: 10/01/23 14:22 DCW [id number]) Shoulder Strength Shoulder Manual Muscle Testing Right Flexion 4- Good- Abduction (C5) 3+ Fair+ External Rotation 4+ Good+ Internal Rotation 5 Normal Comments Limited by significant pain in abduction PT-OP-Q Treatments Start: 10/01/23 13:55 Freq: Status: Active Protocol: Document 10/07/23 15:15 DCW (Rec: 10/07/23 15:59 DCW [id number]) Cardio Equipment Upper Body Ergometer (UBE) Duration (Minutes) 5 RPM 60 Seat Position 11 Height 4 Gym Equipment Shuttle Rebound Ball Toss Exercise Details Ball Toss Comments Green - 500 g Therapeutic Ball I's, Y's, T's Exercise Details Prone I's, Y's, T's Ball Size/Color Green - 65 cm 4# Body Position Prone Therapeutic Exercises Supine Exercises ER/IR Supine Exercise Name ER/IR in 90/90 Side right Resistance 1000g ball Flexion Supine Exercise Name Shoulder flexion /c PVC Side bilateral Resistance 5# Other Exercises Wall ball Other Exercise Name Circles with ball on wall Side right Comments Flexion Abduction Wall Push-ups Other Exercise Name Wall Push-ups Reps/Minutes x15 Comments <> and W hand positions Manual Therapy Treatment Soft Tissue Mobilization Periscapular Body Location R Periscapular musclature Mobilization Type Strumming,Sustained Pressure Intensity/Depth Superficial Joint Mobilizations GH Joint R GH Direction Inf Grade III PT-OP-T Assessment and Plan Start: 10/01/23 13:55 Freq: Status: Active Protocol: Document 10/07/23 15:15 DCW (Rec: 10/07/23 15:59 DCW [id number]) Physical Therapy Assessment Impairments Impairments Activity Tolerance,Functional Activities,Functional Mobility ,Pain,ROM,Soft Tissue Mobility ,Strength Goals Three Impairment Pain limits pt's ability to sleep through the night Shelter Goal (LTG) Pt to report sleeping undisturbed by pain through the night for at least four nights a week. LTG Duration 11/30/23 Two Impairment Right shoulder abduction limited to 136? Shelter Goal (LTG) Pt to improve shoulder abduction to >160? in order to return to performing pain- free overhead activities. LTG Duration 11/30/23 One Impairment Pt does not have an appropriate home exercise program Short Term Goal (STG) Pt to be independent and compliant with an appropriate HEP STG Duration 10/30/23 Assessment Summary Assessment No additional to HEP, as pt was fairly sore following last visit. Plan to add more if recovery goes better. Is showing some improvements with abduction Physical Therapy Plan Frequency and Duration Frequency of Treatment 2x/Week Plan of Care Start Date 10/01/23 Plan of Care End Date 11/30/23 Therapeutic Interventions Therapeutic Interventions Home Exercise Program,Manual Therapy,Orthotic/Prosthetic Management,Patient/Caregiver Education,Soft Tissue Mobilization,Therapeutic Activities,Therapeutic Exercises Modalities Cold Pack/Ice Massage,Electric Stimulation,Hot Packs, Ultrasound Next Visit Focus/Plan Next Note Type Treatment Note Next Visit Plan Shoulder mobility, strengthening, pain-free ROM
--- NOTE | 2023-10-13 11:15 | PT.OTN ---
Current Diagnoses Pain in right shoulder (10/15/23) Stiffness of right shoulder, not elsewhere classified (10/15/23) Physical Therapy Treatment Note PT-OP-A Visit Information Start: 10/01/23 13:55 Freq: Status: Active Protocol: Document 10/13/23 09:49 NBM (Rec: 10/13/23 10:36 NBM [id number]) Out-Patient Physical Therapy Visit Information Visit Information Visit Type Treatment Note Visit Start Time 09:45 Visit Stop Time 10:30 Visit Number 4 Number of CHARCOAL KILN BURNER Visits 1 PT-OP-B Current Condition Start: 10/01/23 13:55 Freq: Status: Active Protocol: Document 10/01/23 11:15 DCW (Rec: 10/01/23 14:22 DCW [id number]) Current Condition History of Current Condition Onset Date 5 month history Current Complaints Right shoulder pain, stiffness History of Current Condition Pt is a 58 year old male presenting with a ~5 month history of right shoulder pain . Pt notes insidious onset, no knowledge of initial injury. Pt does have a history of left shoulder injury, with surgical intervention for partial rotator cuff tear and subacromial decompression two years ago. Notes this is a similar pain. Reports fairly significant nightly sleep disturbances, worst when laying on his shoulder. Also hurts with repetitive movements (using screwdriver), reaching behind his back, or overhead movements. PT-OP-C Subjective Start: 10/01/23 13:55 Freq: Status: Active Protocol: Document 10/13/23 09:49 NBM (Rec: 10/13/23 10:36 NBM [id number]) OP-PT Subjective Patient Comments Patient Comments Pt reports he's doing ex's and getting better. He can sleep longer on his R side but pain still happens. PT-OP-E Functional Tests Start: 10/01/23 13:55 Freq: Status: Active Protocol: Document 10/01/23 11:15 DCW (Rec: 10/01/23 14:22 DCW [id number]) Functional Tests Kareney's Scratch Test Action 3- Left T5 Action 3- Right T8 PT-OP-K Range of Motion Start: 10/01/23 13:55 Freq: Status: Active Protocol: Document 10/01/23 11:15 DCW (Rec: 10/01/23 14:22 DCW [id number]) Shoulder Goniometric Range of Motion Shoulder Right Active Testing Position Standing Flexion 180 Abduction 136 External Rotation at 0 degrees Abduction 44 PT-OP-L Special Tests Start: 10/01/23 13:55 Freq: Status: Active Protocol: Document 10/01/23 11:15 DCW (Rec: 10/01/23 14:22 DCW [id number]) Special Tests Shoulder Special Tests Yergason's Biceps Test Results Mild right LH pain Passive ER Rotator Cuff Test Results Negative Painful Arc Test Results Positive R Lift-Off Rotator Cuff Test Results Mild pain R Baron Michel Impingement Test Results Negative Grind Labrum Test Results Negative Empty Can Test Results Positive R Drop Arm Rotator Cuff Test Results Negative Belly Press Test Results Mild pain R Apprehension Test Test Results Negative PT-OP-M Strength Start: 10/01/23 13:55 Freq: Status: Active Protocol: Document 10/01/23 11:15 DCW (Rec: 10/01/23 14:22 DCW [id number]) Shoulder Strength Shoulder Manual Muscle Testing Right Flexion 4- Good- Abduction (C5) 3+ Fair+ External Rotation 4+ Good+ Internal Rotation 5 Normal Comments Limited by significant pain in abduction PT-OP-Q Treatments Start: 10/01/23 13:55 Freq: Status: Active Protocol: Document 10/13/23 09:49 NBM (Rec: 10/13/23 10:36 NBM [id number]) Gym Equipment Therapeutic Ball I's, Y's, T's Exercise Details Prone I's, Y's, T's Ball Size/Color Green - 65 cm 3# Body Position Prone Reps/Duration x10 ea Comments emphasis on scapular setting, no UT overactivation. Therapeutic Exercises Supine Exercises ER/IR Supine Exercise Name ER/IR in 90/90 Side right Resistance 1000g ball Reps/Minutes x20 Comments cues for scapular setting Flexion Supine Exercise Name Shoulder flexion /c PVC Side bilateral Resistance 5# Reps/Minutes x5 w 0#, x10 w/ 5# Serratus Punch Supine Exercise Name Serratus Punch Side bilateral Resistance 3# Reps/Minutes 2x10 Comments scap setting, no breathholding Sitting Exercises Pulleys Sitting Exercise Name flex/abd/scap Side right Comments cues for scapular setting, R UT overactivation Standing Exercises Rows Standing Exercise Name Rows Side bilateral Resistance Blue Extension Standing Exercise Name Shoulder Extension Side bilateral Resistance Blue ER/IR Standing Exercise Name ER/IR Side bilateral Resistance Lv 3 Manual Therapy Treatment Joint Mobilizations GH Joint R GH Direction Post, Inf Grade II Body Position Hooklying PT-OP-R Modalities Start: 10/15/23 09:39 Freq: Status: Active Protocol: Document 10/13/23 09:49 NBM (Rec: 10/15/23 09:40 NBM [id number]) Hot Pack/Cold Pack Treatment Cold Pack Location R shoulder Patient Position Hooklying Patient Tolerance Good Comments 10 min PT-OP-T Assessment and Plan Start: 10/01/23 13:55 Freq: Status: Active Protocol: Document 10/13/23 09:49 NBM (Rec: 10/13/23 10:36 NBM [id number]) Physical Therapy Assessment Goals Three Impairment Pain limits pt's ability to sleep through the night Retirement Goal (LTG) Pt to report sleeping undisturbed by pain through the night for at least four nights a week. 10/12/22: Pt reports able to sleep longer on R before R nicki pain starts. LTG Duration 11/30/23 (10/13/23 progressing) Two Impairment Right shoulder abduction limited to 136? Business Support Goal (LTG) Pt to improve shoulder abduction to >160? in order to return to performing pain- free overhead activities. LTG Duration 11/30/23 One Impairment Pt does not have an appropriate home exercise program Short Term Goal (STG) Pt to be independent and compliant with an appropriate HEP STG Duration 10/30/23 Assessment Summary Assessment Treatment focus on HEP review. Cueing emphasis to pt for scapular setting with all ex's and increased mindfullness with posture and scap setting. Pt demonstrates improved self -awareness for posture and scapular setting by end of session. Supine AAROM shoulder flexion w/ 5# using dowel dc' d after 10 reps due to pt complaint of increased R shoulder discomfort in supraspinatus insertion region . Verbal discussion of doorway pec stretch at varying angles . Physical Therapy Plan Frequency and Duration Frequency of Treatment 2x/Week Plan of Care Start Date 10/01/23 Plan of Care End Date 11/30/23 Therapeutic Interventions Therapeutic Interventions Home Exercise Program,Manual Therapy,Orthotic/Prosthetic Management,Patient/Caregiver Education,Soft Tissue Mobilization,Therapeutic Activities,Therapeutic Exercises Modalities Cold Pack/Ice Massage,Electric Stimulation,Hot Packs, Ultrasound Next Visit Focus/Plan Next Note Type Treatment Note Next Visit Plan Shoulder mobility, strengthening, pain-free ROM
--- NOTE | 2023-10-13 11:15 | PT.OTN ---
Current Diagnoses Pain in right shoulder (10/13/23) Stiffness of right shoulder, not elsewhere classified (10/13/23) Physical Therapy Treatment Note PT-OP-A Visit Information Start: 10/01/23 13:55 Freq: Status: Active Protocol: Document 10/13/23 09:49 NBM (Rec: 10/13/23 10:36 NB [id number]) Out-Patient Physical Therapy Visit Information Visit Information Visit Type Treatment Note Visit Start Time 15:15 Visit Stop Time 16:00 Visit Number 3 Number of RENT COLLECTOR Visits 0 PT-OP-B Current Condition Start: 10/01/23 13:55 Freq: Status: Active Protocol: Document 10/01/23 11:15 DCW (Rec: 10/01/23 14:22 DCW [id number]) Current Condition History of Current Condition Onset Date 5 month history Current Complaints Right shoulder pain, stiffness History of Current Condition Pt is a 58 year old male presenting with a ~5 month history of right shoulder pain . Pt notes insidious onset, no knowledge of initial injury. Pt does have a history of left shoulder injury, with surgical intervention for partial rotator cuff tear and subacromial decompression two years ago. Notes this is a similar pain. Reports fairly significant nightly sleep disturbances, worst when laying on his shoulder. Also hurts with repetitive movements (using screwdriver), reaching behind his back, or overhead movements. PT-OP-C Subjective Start: 10/01/23 13:55 Freq: Status: Active Protocol: Document 10/13/23 09:49 NBM (Rec: 10/13/23 10:36 NBM [id number]) OP-PT Subjective Patient Comments Patient Comments Pt reports he's doing ex's and getting better. He can sleep longer on his R side but pain still happens. PT-OP-E Functional Tests Start: 10/01/23 13:55 Freq: Status: Active Protocol: Document 10/01/23 11:15 DCW (Rec: 10/01/23 14:22 DCW [id number]) Functional Tests Kareney's Scratch Test Action 3- Left T5 Action 3- Right T8 PT-OP-K Range of Motion Start: 10/01/23 13:55 Freq: Status: Active Protocol: Document 10/01/23 11:15 DCW (Rec: 10/01/23 14:22 DCW [id number]) Shoulder Goniometric Range of Motion Shoulder Right Active Testing Position Standing Flexion 180 Abduction 136 External Rotation at 0 degrees Abduction 44 PT-OP-L Special Tests Start: 10/01/23 13:55 Freq: Status: Active Protocol: Document 10/01/23 11:15 DCW (Rec: 10/01/23 14:22 DCW [id number]) Special Tests Shoulder Special Tests Yergason's Biceps Test Results Mild right LH pain Passive ER Rotator Cuff Test Results Negative Painful Arc Test Results Positive R Lift-Off Rotator Cuff Test Results Mild pain R Baron Michel Impingement Test Results Negative Grind Labrum Test Results Negative Empty Can Test Results Positive R Drop Arm Rotator Cuff Test Results Negative Belly Press Test Results Mild pain R Apprehension Test Test Results Negative PT-OP-M Strength Start: 10/01/23 13:55 Freq: Status: Active Protocol: Document 10/01/23 11:15 DCW (Rec: 10/01/23 14:22 DCW [id number]) Shoulder Strength Shoulder Manual Muscle Testing Right Flexion 4- Good- Abduction (C5) 3+ Fair+ External Rotation 4+ Good+ Internal Rotation 5 Normal Comments Limited by significant pain in abduction PT-OP-Q Treatments Start: 10/01/23 13:55 Freq: Status: Active Protocol: Document 10/13/23 09:49 NBM (Rec: 10/13/23 10:36 NBM [id number]) Gym Equipment Therapeutic Ball I's, Y's, T's Exercise Details Prone I's, Y's, T's Ball Size/Color Green - 65 cm 3# Body Position Prone Reps/Duration x10 ea Comments emphasis on scapular setting, no UT overactivation. Therapeutic Exercises Supine Exercises ER/IR Supine Exercise Name ER/IR in 90/90 Side right Resistance 1000g ball Reps/Minutes x20 Comments cues for scapular setting Flexion Supine Exercise Name Shoulder flexion /c PVC Side bilateral Resistance 5# Reps/Minutes x5 w 0#, x10 w/ 5# Serratus Punch Supine Exercise Name Serratus Punch Side bilateral Resistance 3# Reps/Minutes 2x10 Comments scap setting, no breathholding Sitting Exercises Pulleys Sitting Exercise Name flex/abd/scap Side right Comments cues for scapular setting, R UT overactivation Standing Exercises Rows Standing Exercise Name Rows Side bilateral Resistance Blue Extension Standing Exercise Name Shoulder Extension Side bilateral Resistance Blue ER/IR Standing Exercise Name ER/IR Side bilateral Resistance Lv 3 Manual Therapy Treatment Joint Mobilizations GH Joint R GH Direction Post, Inf Grade II Body Position Hooklying PT-OP-R Modalities Start: 10/15/23 09:39 Freq: Status: Active Protocol: Document 10/13/23 09:49 NBM (Rec: 10/15/23 09:40 NBM [id number]) Hot Pack/Cold Pack Treatment Cold Pack Location R shoulder Patient Position Hooklying Patient Tolerance Good Comments 10 min PT-OP-T Assessment and Plan Start: 10/01/23 13:55 Freq: Status: Active Protocol: Document 10/13/23 09:49 NBM (Rec: 10/13/23 10:36 NBM [id number]) Physical Therapy Assessment Goals Three Impairment Pain limits pt's ability to sleep through the night Penitentiary Goal (LTG) Pt to report sleeping undisturbed by pain through the night for at least four nights a week. 10/12/22: Pt reports able to sleep longer on R before R nicki pain starts. LTG Duration 11/30/23 (10/13/23 progressing) Two Impairment Right shoulder abduction limited to 136? Work Counselor Goal (LTG) Pt to improve shoulder abduction to >160? in order to return to performing pain- free overhead activities. LTG Duration 11/30/23 One Impairment Pt does not have an appropriate home exercise program Short Term Goal (STG) Pt to be independent and compliant with an appropriate HEP STG Duration 10/30/23 Assessment Summary Assessment Treatment focus on HEP review. Cueing emphasis to pt for scapular setting with all ex's and increased mindfullness with posture and scap setting. Pt demonstrates improved self -awareness for posture and scapular setting by end of session. Supine AAROM shoulder flexion w/ 5# using dowel dc' d after 10 reps due to pt complaint of increased R shoulder discomfort in supraspinatus insertion region . Verbal discussion of doorway pec stretch at varying angles . Physical Therapy Plan Frequency and Duration Frequency of Treatment 2x/Week Plan of Care Start Date 10/01/23 Plan of Care End Date 11/30/23 Therapeutic Interventions Therapeutic Interventions Home Exercise Program,Manual Therapy,Orthotic/Prosthetic Management,Patient/Caregiver Education,Soft Tissue Mobilization,Therapeutic Activities,Therapeutic Exercises Modalities Cold Pack/Ice Massage,Electric Stimulation,Hot Packs, Ultrasound Next Visit Focus/Plan Next Note Type Treatment Note Next Visit Plan Shoulder mobility, strengthening, pain-free ROM
--- NOTE | 2023-10-15 11:09 | PT.OTN ---
Current Diagnoses Pain in right shoulder (10/15/23) Stiffness of right shoulder, not elsewhere classified (10/15/23) Physical Therapy Treatment Note PT-OP-A Visit Information Start: 10/01/23 13:55 Freq: Status: Active Protocol: Document 10/15/23 09:45 NBM (Rec: 10/15/23 11:05 [facility] [id number]) Out-Patient Physical Therapy Visit Information Visit Information Visit Type Treatment Note Visit Start Time 09:46 Visit Stop Time 10:35 Visit Number 5 Number of OPERATIONS INTELLIGENCE Visits 2 PT-OP-B Current Condition Start: 10/01/23 13:55 Freq: Status: Active Protocol: Document 10/01/23 11:15 DCW (Rec: 10/01/23 14:22 DCW [id number]) Current Condition History of Current Condition Onset Date 5 month history Current Complaints Right shoulder pain, stiffness History of Current Condition Pt is a 58 year old male presenting with a ~5 month history of right shoulder pain . Pt notes insidious onset, no knowledge of initial injury. Pt does have a history of left shoulder injury, with surgical intervention for partial rotator cuff tear and subacromial decompression two years ago. Notes this is a similar pain. Reports fairly significant nightly sleep disturbances, worst when laying on his shoulder. Also hurts with repetitive movements (using screwdriver), reaching behind his back, or overhead movements. PT-OP-C Subjective Start: 10/01/23 13:55 Freq: Status: Active Protocol: Document 10/15/23 09:45 NBM (Rec: 10/15/23 11:05 [facility] [id number]) OP-PT Subjective Patient Comments Patient Comments Pt reports his R shoulder ( points to Upper trapezius m.) is very tight this morning since he woke up. He felt good after last visit and ice helped a lot. He reports performing doorway pec stretch once and then forgetting about it and requests handout. PT-OP-E Functional Tests Start: 10/01/23 13:55 Freq: Status: Active Protocol: Document 10/01/23 11:15 DCW (Rec: 10/01/23 14:22 DCW [id number]) Functional Tests Kareney's Scratch Test Action 3- Left T5 Action 3- Right T8 PT-OP-K Range of Motion Start: 10/01/23 13:55 Freq: Status: Active Protocol: Document 10/01/23 11:15 DCW (Rec: 10/01/23 14:22 DCW [id number]) Shoulder Goniometric Range of Motion Shoulder Right Active Testing Position Standing Flexion 180 Abduction 136 External Rotation at 0 degrees Abduction 44 PT-OP-L Special Tests Start: 10/01/23 13:55 Freq: Status: Active Protocol: Document 10/01/23 11:15 DCW (Rec: 10/01/23 14:22 DCW [id number]) Special Tests Shoulder Special Tests Yergason's Biceps Test Results Mild right LH pain Passive ER Rotator Cuff Test Results Negative Painful Arc Test Results Positive R Lift-Off Rotator Cuff Test Results Mild pain R Baron Michel Impingement Test Results Negative Grind Labrum Test Results Negative Empty Can Test Results Positive R Drop Arm Rotator Cuff Test Results Negative Belly Press Test Results Mild pain R Apprehension Test Test Results Negative PT-OP-M Strength Start: 10/01/23 13:55 Freq: Status: Active Protocol: Document 10/01/23 11:15 DCW (Rec: 10/01/23 14:22 DCW [id number]) Shoulder Strength Shoulder Manual Muscle Testing Right Flexion 4- Good- Abduction (C5) 3+ Fair+ External Rotation 4+ Good+ Internal Rotation 5 Normal Comments Limited by significant pain in abduction PT-OP-Q Treatments Start: 10/01/23 13:55 Freq: Status: Active Protocol: Document 10/15/23 09:45 NBM (Rec: 10/15/23 11:05 NBM [id number]) Cardio Equipment Upper Body Ergometer (UBE) Duration (Minutes) 5 RPM 60 Seat Position 11 Height 4 Other fwd/bwd at 2.5 min Therapeutic Exercises Sitting Exercises Cervical Stretch Sitting Exercise Name 1. UT 2. LS Side bilateral Equipment Used chair for scapular stabilizing Reps/Minutes x30s ea Comments VC scap stability, upright, gentle pull only, painfree, no overpressure Standing Exercises Doorway pec stretch Standing Exercise Name varying angles - added to HEP Side bilateral Equipment Used doorway Reps/Minutes 30s ea Comments R>L pec tightness Other Exercises Wall ball Other Exercise Name Circles with ball on wall Side right Equipment Used blue/white ball, wall Reps/Minutes 1' ea Comments Flexion Abduction Wall Push-ups Other Exercise Name <> added to HEP Equipment Used wall Reps/Minutes <>x10, W<>6 dc'd d/t c/o pain Comments <> and W hand positions Resisted Ambulation Other Exercise Name Resisted UE side-stepping Resistance Green loop Equipment Used handrail Reps/Minutes x5 ft ea Comments R UT discomfort with stepping R>L, dc'd d/t R UT pain Manual Therapy Treatment Soft Tissue Mobilization Periscapular Body Location R Periscapular musclature Mobilization Type Strumming,Sustained Pressure Intensity/Depth Superficial Body Position Hooklying Comments R UT focus. Manual pin and stretch to R UT and R LS x30s ea w/ deep breathing. Joint Mobilizations GH Joint R GH Direction Post, Inf Grade II Body Position Hooklying Self-Care/Home Management Treatment Education Patient Education Home Exercise Program,Pain Management,Posture Other Education -Pt i/s in self-STM to R UT w/ ball lying and at wall - lying too intense, wall good feedback response. -Added to HEP: <> wall pushups , seated UT/LS stretch (no overpressure), Doorway pec stretch, UE Bandwalking, and self-STM to UT w/ tennis ball at wall- HO left at front sight attacher for pt to worm picker later today . PT-OP-R Modalities Start: 10/15/23 09:39 Freq: Status: Active Protocol: Document 10/13/23 09:49 NBM (Rec: 10/15/23 09:40 NBM [id number]) Hot Pack/Cold Pack Treatment Cold Pack Location R shoulder Patient Position Hooklying Patient Tolerance Good Comments 10 min PT-OP-T Assessment and Plan Start: 10/01/23 13:55 Freq: Status: Active Protocol: Document 10/15/23 09:45 NBM (Rec: 10/15/23 11:05 NBM [id number]) Physical Therapy Assessment Goals Three Impairment Pain limits pt's ability to sleep through the night Mcfp Goal (LTG) Pt to report sleeping undisturbed by pain through the night for at least four nights a week. 10/12/22: Pt reports able to sleep longer on R before R nicki pain starts. LTG Duration 11/30/23 (10/13/23 progressing) Two Impairment Right shoulder abduction limited to 136? Mcfp Goal (LTG) Pt to improve shoulder abduction to >160? in order to return to performing pain- free overhead activities. LTG Duration 11/30/23 One Impairment Pt does not have an appropriate home exercise program Short Term Goal (STG) Pt to be independent and compliant with an appropriate HEP STG Duration 10/30/23 Assessment Summary Assessment Pt presents w/ increased R UT tightness and pain today. Treatment focus on scapular stability, stretching and manual therapy. Pt requires less cues today for scapular setting but still needs cues for chin tucks, particularly challenging is W push-up at the wall for which pt also demonstrates UT overactivation and is dc'd due to pt complaint of R UT pain. Added to HEP: <> wall pushups, seated UT/LS stretch (no overpressure), Doorway pec stretch, UE Bandwalking, and self-STM to UT w/ tennis ball - HO left at front sight attacher for pt to worm picker later today. Resisted UE bandwalking increases R UT pain and is dc' d. Palpable tension through UT improves with STM and manual stretch to R UT and LS, and pt reports decreased pain and increased cervical ROM end of session. Physical Therapy Plan Frequency and Duration Frequency of Treatment 2x/Week Plan of Care Start Date 10/01/23 Plan of Care End Date 11/30/23 Therapeutic Interventions Therapeutic Interventions Home Exercise Program,Manual Therapy,Orthotic/Prosthetic Management,Patient/Caregiver Education,Soft Tissue Mobilization,Therapeutic Activities,Therapeutic Exercises Modalities Cold Pack/Ice Massage,Electric Stimulation,Hot Packs, Ultrasound Next Visit Focus/Plan Next Note Type Treatment Note Next Visit Plan Shoulder mobility, strengthening, pain-free ROM
--- NOTE | 2023-10-20 11:15 | PT.OTN ---
Current Diagnoses Pain in right shoulder (10/20/23) Stiffness of right shoulder, not elsewhere classified (10/20/23) Physical Therapy Treatment Note PT-OP-A Visit Information Start: 10/01/23 13:55 Freq: Status: Active Protocol: Document 10/20/23 10:30 DCW (Rec: 10/20/23 11:15 DCW [id number]) Out-Patient Physical Therapy Visit Information Visit Information Visit Type Treatment Note Visit Start Time 10:30 Visit Stop Time 11:15 Visit Number 6 Number of APPRAISER OIL AND WATER Visits 0 Evaluation Information Evaluation Date 10/01/23 PT-OP-B Current Condition Start: 10/01/23 13:55 Freq: Status: Active Protocol: Document 10/01/23 11:15 DCW (Rec: 10/01/23 14:22 DCW [id number]) Current Condition History of Current Condition Onset Date 5 month history Current Complaints Right shoulder pain, stiffness History of Current Condition Pt is a 58 year old male presenting with a ~5 month history of right shoulder pain . Pt notes insidious onset, no knowledge of initial injury. Pt does have a history of left shoulder injury, with surgical intervention for partial rotator cuff tear and subacromial decompression two years ago. Notes this is a similar pain. Reports fairly significant nightly sleep disturbances, worst when laying on his shoulder. Also hurts with repetitive movements (using screwdriver), reaching behind his back, or overhead movements. PT-OP-C Subjective Start: 10/01/23 13:55 Freq: Status: Active Protocol: Document 10/20/23 10:30 DCW (Rec: 10/20/23 11:15 DCW [id number]) OP-PT Subjective Patient Comments Patient Comments Pt notes he's feeling better overall, upper trap has loosened up more since last week, but he's still been somewhat limited in his exercise. PT-OP-E Functional Tests Start: 10/01/23 13:55 Freq: Status: Active Protocol: Document 10/01/23 11:15 DCW (Rec: 10/01/23 14:22 DCW [id number]) Functional Tests Kareney's Scratch Test Action 3- Left T5 Action 3- Right T8 PT-OP-K Range of Motion Start: 10/01/23 13:55 Freq: Status: Active Protocol: Document 10/01/23 11:15 DCW (Rec: 10/01/23 14:22 DCW [id number]) Shoulder Goniometric Range of Motion Shoulder Right Active Testing Position Standing Flexion 180 Abduction 136 External Rotation at 0 degrees Abduction 44 PT-OP-L Special Tests Start: 10/01/23 13:55 Freq: Status: Active Protocol: Document 10/01/23 11:15 DCW (Rec: 10/01/23 14:22 DCW [id number]) Special Tests Shoulder Special Tests Yergason's Biceps Test Results Mild right LH pain Passive ER Rotator Cuff Test Results Negative Painful Arc Test Results Positive R Lift-Off Rotator Cuff Test Results Mild pain R Baron Michel Impingement Test Results Negative Grind Labrum Test Results Negative Empty Can Test Results Positive R Drop Arm Rotator Cuff Test Results Negative Belly Press Test Results Mild pain R Apprehension Test Test Results Negative PT-OP-M Strength Start: 10/01/23 13:55 Freq: Status: Active Protocol: Document 10/01/23 11:15 DCW (Rec: 10/01/23 14:22 DCW [id number]) Shoulder Strength Shoulder Manual Muscle Testing Right Flexion 4- Good- Abduction (C5) 3+ Fair+ External Rotation 4+ Good+ Internal Rotation 5 Normal Comments Limited by significant pain in abduction PT-OP-Q Treatments Start: 10/01/23 13:55 Freq: Status: Active Protocol: Document 10/20/23 10:30 DCW (Rec: 10/20/23 11:15 DCW [id number]) Cardio Equipment Upper Body Ergometer (UBE) Duration (Minutes) 5 RPM 60 Seat Position 11 Height 4 Other fwd/bwd at 2.5 min Gym Equipment Shuttle Rebound Ball Toss Exercise Details Ball Toss Comments Green - 500 g Therapeutic Ball I's, Y's, T's Exercise Details Prone I's, Y's, T's Ball Size/Color Green - 65 cm 3# Body Position Prone Reps/Duration x10 ea Comments stopped d/t UT pain today Therapeutic Exercises Standing Exercises Abduction Standing Exercise Name Shoulder Abduction Side right Resistance Lv 2 Flexion Standing Exercise Name Shoulder flexion Side right Resistance Lv 2 Other Exercises Resisted Ambulation Other Exercise Name Resisted UE side-stepping Resistance Green loop Equipment Used handrail Reps/Minutes x5 ft ea Comments R UT discomfort with stepping R>L, dc'd d/t R UT pain Manual Therapy Treatment Soft Tissue Mobilization Periscapular Body Location R Periscapular musclature Mobilization Type Strumming,Sustained Pressure Intensity/Depth Superficial Body Position Hooklying Comments R UT focus. Manual pin and stretch to R UT and R LS x30s ea w/ deep breathing. Joint Mobilizations GH Joint R GH Direction Post, Inf Grade II Body Position Hooklying PT-OP-R Modalities Start: 10/15/23 09:39 Freq: Status: Active Protocol: Document 10/13/23 09:49 NBM (Rec: 10/15/23 09:40 NBM [id number]) Hot Pack/Cold Pack Treatment Cold Pack Location R shoulder Patient Position Hooklying Patient Tolerance Good Comments 10 min PT-OP-T Assessment and Plan Start: 10/01/23 13:55 Freq: Status: Active Protocol: Document 10/20/23 10:30 DCW (Rec: 10/20/23 11:15 DCW [id number]) Physical Therapy Assessment Impairments Impairments Activity Tolerance,Functional Activities,Functional Mobility ,Pain,ROM,Soft Tissue Mobility ,Strength Goals Three Impairment Pain limits pt's ability to sleep through the night Alf Goal (LTG) Pt to report sleeping undisturbed by pain through the night for at least four nights a week. 10/12/22: Pt reports able to sleep longer on R before R nicki pain starts. LTG Duration 11/30/23 (10/13/23 progressing) Two Impairment Right shoulder abduction limited to 136? Alf Goal (LTG) Pt to improve shoulder abduction to >160? in order to return to performing pain- free overhead activities. LTG Duration 11/30/23 One Impairment Pt does not have an appropriate home exercise program Short Term Goal (STG) Pt to be independent and compliant with an appropriate HEP STG Duration 10/30/23 Assessment Summary Assessment Pt limited with some activities today due to continued pain/tightness along upper trap. Spent increased time today with STM/manual therapy in effort to decrease tone and improve pain-free mobility. Physical Therapy Plan Frequency and Duration Frequency of Treatment 2x/Week Plan of Care Start Date 10/01/23 Plan of Care End Date 11/30/23 Therapeutic Interventions Therapeutic Interventions Home Exercise Program,Manual Therapy,Orthotic/Prosthetic Management,Patient/Caregiver Education,Soft Tissue Mobilization,Therapeutic Activities,Therapeutic Exercises Modalities Cold Pack/Ice Massage,Electric Stimulation,Hot Packs, Ultrasound Next Visit Focus/Plan Next Note Type Treatment Note Next Visit Plan Shoulder mobility, strengthening, pain-free ROM
--- NOTE | 2023-10-22 15:35 | PT.OTN ---
Current Diagnoses Pain in right shoulder (10/22/23) Stiffness of right shoulder, not elsewhere classified (10/22/23) Physical Therapy Treatment Note PT-OP-A Visit Information Start: 10/01/23 13:55 Freq: Status: Active Protocol: Document 10/22/23 14:20 AB (Rec: 10/22/23 15:34 AB [id number]) Out-Patient Physical Therapy Visit Information Visit Information Visit Type Treatment Note Visit Start Time 02:32 Visit Stop Time 03:20 Visit Number 7 Number of FILLER MIXER Visits 1 Evaluation Information Evaluation Date 10/01/23 PT-OP-B Current Condition Start: 10/01/23 13:55 Freq: Status: Active Protocol: Document 10/01/23 11:15 DCW (Rec: 10/01/23 14:22 DCW [id number]) Current Condition History of Current Condition Onset Date 5 month history Current Complaints Right shoulder pain, stiffness History of Current Condition Pt is a 58 year old male presenting with a ~5 month history of right shoulder pain . Pt notes insidious onset, no knowledge of initial injury. Pt does have a history of left shoulder injury, with surgical intervention for partial rotator cuff tear and subacromial decompression two years ago. Notes this is a similar pain. Reports fairly significant nightly sleep disturbances, worst when laying on his shoulder. Also hurts with repetitive movements (using screwdriver), reaching behind his back, or overhead movements. PT-OP-C Subjective Start: 10/01/23 13:55 Freq: Status: Active Protocol: Document 10/22/23 14:20 AB (Rec: 10/22/23 15:34 AB [id number]) OP-PT Subjective Patient Comments Patient Comments Patient reports the shoulder is better than last time he was here, reports pain UT post cuff ( gestures to these areas ) persists. Sleeping is still painful. 119 deg AROM right shoulder abduction start of session PT-OP-E Functional Tests Start: 10/01/23 13:55 Freq: Status: Active Protocol: Document 10/01/23 11:15 DCW (Rec: 10/01/23 14:22 DCW [id number]) Functional Tests Kareney's Scratch Test Action 3- Left T5 Action 3- Right T8 PT-OP-K Range of Motion Start: 10/01/23 13:55 Freq: Status: Active Protocol: Document 10/01/23 11:15 DCW (Rec: 10/01/23 14:22 DCW [id number]) Shoulder Goniometric Range of Motion Shoulder Right Active Testing Position Standing Flexion 180 Abduction 136 External Rotation at 0 degrees Abduction 44 PT-OP-L Special Tests Start: 10/01/23 13:55 Freq: Status: Active Protocol: Document 10/01/23 11:15 DCW (Rec: 10/01/23 14:22 DCW [id number]) Special Tests Shoulder Special Tests Yergason's Biceps Test Results Mild right LH pain Passive ER Rotator Cuff Test Results Negative Painful Arc Test Results Positive R Lift-Off Rotator Cuff Test Results Mild pain R Baron Michel Impingement Test Results Negative Grind Labrum Test Results Negative Empty Can Test Results Positive R Drop Arm Rotator Cuff Test Results Negative Belly Press Test Results Mild pain R Apprehension Test Test Results Negative PT-OP-M Strength Start: 10/01/23 13:55 Freq: Status: Active Protocol: Document 10/01/23 11:15 DCW (Rec: 10/01/23 14:22 DCW [id number]) Shoulder Strength Shoulder Manual Muscle Testing Right Flexion 4- Good- Abduction (C5) 3+ Fair+ External Rotation 4+ Good+ Internal Rotation 5 Normal Comments Limited by significant pain in abduction PT-OP-Q Treatments Start: 10/01/23 13:55 Freq: Status: Active Protocol: Document 10/22/23 14:20 AB (Rec: 10/22/23 15:34 AB [id number]) Therapeutic Exercises Sidelying Exercises sidelying shoulder abduction Side right Reps/Minutes X10 Comments Verbal cues to perform in pain free range and for thumb up sidelying shoulder ER Side right Reps/Minutes X12 Comments Verbal cues for UE position direction of movement Standing Exercises Doorway pec stretch Standing Exercise Name 90/90 position Equipment Used doorway Reps/Minutes 60 sec X 3 Comments X2 single arm on door X1 bilateral UE's on door at once Rows Standing Exercise Name Rows Side bilateral Resistance green level 3 Reps/Minutes X10 Comments tactile cues at scapula Manual Therapy Treatment Soft Tissue Mobilization right pec Mobilization Type Cross-Friction,Rolling Intensity/Depth Moderate Body Position Prone Comments Monitored for pain Periscapular Body Location R Periscapular musclature Mobilization Type Cross-Friction,Rolling, Sustained Pressure Intensity/Depth Moderate Body Position Sidelying Comments Monitored for pain hillary Joint Mobilizations scapular mobilization Joint right scapula Direction depression and adduction Grade III Body Position Sitting Reps/Duration 15 each direction Comments monitored for pain GH Joint R GH Direction Post, Inf Grade II Body Position Hooklying Taping right shoulder Body Location right shoulder Treatment Focus Unload UT/levator scap, posture Type of Tape Kinesiotape Skin Inspection WNL Comments Patient ed to remove 3-5 days or immediately if skin irritation occurs. Self-Care/Home Management Treatment Education Other Education Patient ed to use pillow/ pillows under right UE when sidelying left and when sidelying right position shoulder slightly forward. Performed during this session. Activities Self-Care/Home Management Activities HEP, progressed sh abd with dowel to sidelying sh abduction with sidelying ER AROM prior PT-OP-R Modalities Start: 10/15/23 09:39 Freq: Status: Active Protocol: Document 10/13/23 09:49 NBM (Rec: 10/15/23 09:40 NBM [id number]) Hot Pack/Cold Pack Treatment Cold Pack Location R shoulder Patient Position Hooklying Patient Tolerance Good Comments 10 min PT-OP-T Assessment and Plan Start: 10/01/23 13:55 Freq: Status: Active Protocol: Document 10/22/23 14:20 AB (Rec: 10/22/23 15:34 AB [id number]) Physical Therapy Assessment Goals Three Impairment Pain limits pt's ability to sleep through the night Nursing Home Goal (LTG) Pt to report sleeping undisturbed by pain through the night for at least four nights a week. 10/12/22: Pt reports able to sleep longer on R before R nicki pain starts. LTG Duration 11/30/23 (10/13/23 progressing) Two Impairment Right shoulder abduction limited to 136? Insulation Worker Interior Surface Goal (LTG) Pt to improve shoulder abduction to >160? in order to return to performing pain- free overhead activities. LTG Duration 11/30/23 One Impairment Pt does not have an appropriate home exercise program Short Term Goal (STG) Pt to be independent and compliant with an appropriate HEP STG Duration 10/30/23 Assessment Summary Assessment AROM right shoulder abduction increased to 124 deg end of session from 119 deg start of session. ROM and strength right shoulder continues to be limited impacting functional mobility. Physical Therapy Plan Frequency and Duration Frequency of Treatment 2x/Week Plan of Care Start Date 10/01/23 Plan of Care End Date 11/30/23 Next Visit Focus/Plan Next Note Type Treatment Note Next Visit Plan Shoulder mobility, strengthening, pain-free ROM
--- NOTE | 2023-10-27 11:43 | PT.OTN ---
Current Diagnoses Pain in right shoulder (10/27/23) Stiffness of right shoulder, not elsewhere classified (10/27/23) Physical Therapy Treatment Note PT-OP-A Visit Information Start: 10/01/23 13:55 Freq: Status: Active Protocol: Document 10/27/23 10:32 NBM (Rec: 10/27/23 11:42 NB [id number]) Out-Patient Physical Therapy Visit Information Visit Information Visit Type Treatment Note Visit Start Time 10:33 Visit Stop Time 11:17 Visit Number 8 Number of BIOFUELS PRODUCT MANAGER Visits 2 Evaluation Information Evaluation Date 10/01/23 PT-OP-B Current Condition Start: 10/01/23 13:55 Freq: Status: Active Protocol: Document 10/01/23 11:15 DCW (Rec: 10/01/23 14:22 DCW [id number]) Current Condition History of Current Condition Onset Date 5 month history Current Complaints Right shoulder pain, stiffness History of Current Condition Pt is a 58 year old male presenting with a ~5 month history of right shoulder pain . Pt notes insidious onset, no knowledge of initial injury. Pt does have a history of left shoulder injury, with surgical intervention for partial rotator cuff tear and subacromial decompression two years ago. Notes this is a similar pain. Reports fairly significant nightly sleep disturbances, worst when laying on his shoulder. Also hurts with repetitive movements (using screwdriver), reaching behind his back, or overhead movements. PT-OP-C Subjective Start: 10/01/23 13:55 Freq: Status: Active Protocol: Document 10/27/23 10:32 NBM (Rec: 10/27/23 11:42 NB [id number]) OP-PT Subjective Patient Comments Patient Comments Yaya reports yesterday was one of the best days he's had in a while, but when reaching up overhead into cupboard (demo's shoulder abduction and flexion) pt felt a clicking feeling internally. felt more structural than muscular. The R shouler pain is in the same area but worse since. Pain currently 5-6/10. Back' s been aggravating me so I'm not up for doing the floor ex' s or the ball. possibly from a hike he did. He uses the tennis ball for self-massage as needed but hasn't needed to for a while. He thinks KT tape may have helped but declines to reapply today. PT-OP-E Functional Tests Start: 10/01/23 13:55 Freq: Status: Active Protocol: Document 10/01/23 11:15 DCW (Rec: 10/01/23 14:22 DCW [id number]) Functional Tests Apley's Scratch Test Action 3- Left T5 Action 3- Right T8 PT-OP-K Range of Motion Start: 10/01/23 13:55 Freq: Status: Active Protocol: Document 10/01/23 11:15 DCW (Rec: 10/01/23 14:22 DCW [id number]) Shoulder Goniometric Range of Motion Shoulder Right Active Testing Position Standing Flexion 180 Abduction 136 External Rotation at 0 degrees Abduction 44 PT-OP-L Special Tests Start: 10/01/23 13:55 Freq: Status: Active Protocol: Document 10/01/23 11:15 DCW (Rec: 10/01/23 14:22 DCW [id number]) Special Tests Shoulder Special Tests Yergason's Biceps Test Results Mild right LH pain Passive ER Rotator Cuff Test Results Negative Painful Arc Test Results Positive R Lift-Off Rotator Cuff Test Results Mild pain R Baron Michel Impingement Test Results Negative Grind Labrum Test Results Negative Empty Can Test Results Positive R Drop Arm Rotator Cuff Test Results Negative Belly Press Test Results Mild pain R Apprehension Test Test Results Negative PT-OP-M Strength Start: 10/01/23 13:55 Freq: Status: Active Protocol: Document 10/01/23 11:15 DCW (Rec: 10/01/23 14:22 DCW [id number]) Shoulder Strength Shoulder Manual Muscle Testing Right Flexion 4- Good- Abduction (C5) 3+ Fair+ External Rotation 4+ Good+ Internal Rotation 5 Normal Comments Limited by significant pain in abduction PT-OP-Q Treatments Start: 10/01/23 13:55 Freq: Status: Active Protocol: Document 10/27/23 10:32 NBM (Rec: 10/27/23 11:42 NBM [id number]) Cardio Equipment Upper Body Ergometer (UBE) Duration (Minutes) 5 RPM 60 Seat Position 11 Height 4 Other fwd/bwd at 2.5 min Therapeutic Exercises Standing Exercises Abduction Standing Exercise Name Shoulder Abduction Side right Resistance Lv 2 2bands>1 band Reps/Minutes x10 Comments tactile cues for UT overactivation, scap setting Rows Standing Exercise Name Rows Side bilateral Resistance orange Lvl 2 Reps/Minutes X10 Comments tactile cues at scapula Extension Standing Exercise Name Shoulder Extension Side bilateral Resistance orange Lvl 2 Reps/Minutes x10 Comments tactile cues at scapula Manual Therapy Treatment Soft Tissue Mobilization Periscapular Body Location R Periscapular musclature Mobilization Type Cross-Friction,Rolling, Strumming,Sustained Pressure, Trigger Point Release Intensity/Depth Moderate Body Position Sidelying Comments R UT focus w/ trigger point release. Monitored for pain Joint Mobilizations scapular mobilization Joint right scapula Direction depression, adduction, tilt, rotation Grade II Body Position Sitting Reps/Duration 10 each direction Comments monitored for pain Self-Care/Home Management Treatment Education Patient Education Home Exercise Program,Pain Management,Posture Other Education Discussion w/ pt reminding of pain intervention options such as self-STM w/ tennis ball and cervical stretches, as well as compliance w/ shoulder strengthening ex's to prevent re-aggravation with reaching overhead - pt expresses understanding. PT-OP-R Modalities Start: 10/15/23 09:39 Freq: Status: Active Protocol: Document 10/13/23 09:49 NBM (Rec: 10/15/23 09:40 NBM [id number]) Hot Pack/Cold Pack Treatment Cold Pack Location R shoulder Patient Position Hooklying Patient Tolerance Good Comments 10 min PT-OP-T Assessment and Plan Start: 10/01/23 13:55 Freq: Status: Active Protocol: Document 10/27/23 10:32 NBM (Rec: 10/27/23 11:42 NBM [id number]) Physical Therapy Assessment Goals Three Impairment Pain limits pt's ability to sleep through the night Skilled Nursing Goal (LTG) Pt to report sleeping undisturbed by pain through the night for at least four nights a week. 10/12/22: Pt reports able to sleep longer on R before R nicki pain starts. LTG Duration 11/30/23 (10/13/23 progressing) Two Impairment Right shoulder abduction limited to 136? Marketing Director Goal (LTG) Pt to improve shoulder abduction to >160? in order to return to performing pain- free overhead activities. LTG Duration 11/30/23 One Impairment Pt does not have an appropriate home exercise program Short Term Goal (STG) Pt to be independent and compliant with an appropriate HEP STG Duration 10/30/23 Assessment Summary Assessment Yaya presents with R shoulder muscle guarding, observably tight R UT and R shoulder pain 5-6/10 start of session which improves to 3/10 end of session. Treatment focus on scapular setting and posture w / resisted upper extremity ex, self-care and manual therapy. Pt requires cues for UT overactivation w/ resisted rows and R nicki resisted abduction modified from 2 bands to 1 band due to complaint of R shoulder pain. Discussion w/ pt reminding of pain intervention options such as self-STM w/ tennis ball and cervical stretches, as well as compliance w/ shoulder strengthening ex's to prevent re-aggravation with reaching overhead - pt expresses understanding. Palpable tension of R UT improves soft tissue mobilization and scapulothoracic joint mobilizations, and R UT guarding observably improves to both shoulders same height in sitting and standing post- manual. Pt declines re- application of KT tape today. Physical Therapy Plan Frequency and Duration Frequency of Treatment 2x/Week Plan of Care Start Date 10/01/23 Plan of Care End Date 11/30/23 Therapeutic Interventions Therapeutic Interventions Home Exercise Program,Manual Therapy,Orthotic/Prosthetic Management,Patient/Caregiver Education,Soft Tissue Mobilization,Therapeutic Activities,Therapeutic Exercises Modalities Cold Pack/Ice Massage,Electric Stimulation,Hot Packs, Ultrasound Next Visit Focus/Plan Next Note Type Treatment Note Next Visit Plan Shoulder mobility, strengthening, pain-free ROM
--- NOTE | 2023-11-10 16:53 | PT.OTN ---
Current Diagnoses Pain in right shoulder (11/10/23) Stiffness of right shoulder, not elsewhere classified (11/10/23) Physical Therapy Treatment Note PT-OP-A Visit Information Start: 10/01/23 13:55 Freq: Status: Active Protocol: Document 11/10/23 16:00 DCW (Rec: 11/10/23 16:53 DCW [id number]) Out-Patient Physical Therapy Visit Information Visit Information Visit Type Treatment Note Visit Start Time 16:00 Visit Stop Time 16:45 Visit Number 9 Number of MANAGER CONTACT Visits 0 Evaluation Information Evaluation Date 10/01/23 PT-OP-B Current Condition Start: 10/01/23 13:55 Freq: Status: Active Protocol: Document 10/01/23 11:15 DCW (Rec: 10/01/23 14:22 DCW [id number]) Current Condition History of Current Condition Onset Date 5 month history Current Complaints Right shoulder pain, stiffness History of Current Condition Pt is a 58 year old male presenting with a ~5 month history of right shoulder pain . Pt notes insidious onset, no knowledge of initial injury. Pt does have a history of left shoulder injury, with surgical intervention for partial rotator cuff tear and subacromial decompression two years ago. Notes this is a similar pain. Reports fairly significant nightly sleep disturbances, worst when laying on his shoulder. Also hurts with repetitive movements (using screwdriver), reaching behind his back, or overhead movements. PT-OP-C Subjective Start: 10/01/23 13:55 Freq: Status: Active Protocol: Document 11/10/23 16:00 DCW (Rec: 11/10/23 16:53 DCW [id number]) OP-PT Subjective Patient Comments Patient Comments Reports he did not have much pain at all when recently visiting [place], but has been pretty sore since coming back to the wet, cold weather. PT-OP-E Functional Tests Start: 10/01/23 13:55 Freq: Status: Active Protocol: Document 10/01/23 11:15 DCW (Rec: 10/01/23 14:22 DCW [id number]) Functional Tests Kareney's Scratch Test Action 3- Left T5 Action 3- Right T8 PT-OP-K Range of Motion Start: 10/01/23 13:55 Freq: Status: Active Protocol: Document 10/01/23 11:15 DCW (Rec: 10/01/23 14:22 DCW [id number]) Shoulder Goniometric Range of Motion Shoulder Right Active Testing Position Standing Flexion 180 Abduction 136 External Rotation at 0 degrees Abduction 44 PT-OP-L Special Tests Start: 10/01/23 13:55 Freq: Status: Active Protocol: Document 10/01/23 11:15 DCW (Rec: 10/01/23 14:22 DCW [id number]) Special Tests Shoulder Special Tests Yergason's Biceps Test Results Mild right LH pain Passive ER Rotator Cuff Test Results Negative Painful Arc Test Results Positive R Lift-Off Rotator Cuff Test Results Mild pain R Baron Michel Impingement Test Results Negative Grind Labrum Test Results Negative Empty Can Test Results Positive R Drop Arm Rotator Cuff Test Results Negative Belly Press Test Results Mild pain R Apprehension Test Test Results Negative PT-OP-M Strength Start: 10/01/23 13:55 Freq: Status: Active Protocol: Document 10/01/23 11:15 DCW (Rec: 10/01/23 14:22 DCW [id number]) Shoulder Strength Shoulder Manual Muscle Testing Right Flexion 4- Good- Abduction (C5) 3+ Fair+ External Rotation 4+ Good+ Internal Rotation 5 Normal Comments Limited by significant pain in abduction PT-OP-Q Treatments Start: 10/01/23 13:55 Freq: Status: Active Protocol: Document 11/10/23 16:00 DCW (Rec: 11/10/23 16:53 DCW [id number]) Cardio Equipment Upper Body Ergometer (UBE) Duration (Minutes) 5 RPM 60 Seat Position 11 Height 4 Other fwd/bwd at 2.5 min Gym Equipment Therapeutic Ball I's, Y's, T's Exercise Details Prone I's, Y's, T's Ball Size/Color Green - 65 cm 3# Body Position Prone Reps/Duration x10 ea Therapeutic Exercises Sitting Exercises ER/IR Sitting Exercise Name ER/IR at 90/90 Side right Resistance 5.5# ball Other Exercises Resisted Ambulation Other Exercise Name Resisted UE side-stepping Resistance Green loop Equipment Used handrail Reps/Minutes x5 ft ea Comments R UT discomfort with stepping R>L, dc'd d/t R UT pain Manual Therapy Treatment Soft Tissue Mobilization right pec Mobilization Type Cross-Friction,Rolling Intensity/Depth Moderate Body Position Supine Comments Monitored for pain Periscapular Body Location R Periscapular musclature Mobilization Type Cross-Friction,Rolling, Sustained Pressure Intensity/Depth Moderate Body Position Sidelying Comments Monitored for pain hillary Joint Mobilizations scapular mobilization Joint right scapula Direction Lateral Grade III Body Position Sidelying GH Joint R GH Direction Post, Inf Grade III Body Position Hooklying PT-OP-R Modalities Start: 10/15/23 09:39 Freq: Status: Active Protocol: Document 10/13/23 09:49 NBM (Rec: 10/15/23 09:40 NBM [id number]) Hot Pack/Cold Pack Treatment Cold Pack Location R shoulder Patient Position Hooklying Patient Tolerance Good Comments 10 min PT-OP-T Assessment and Plan Start: 10/01/23 13:55 Freq: Status: Active Protocol: Document 11/10/23 16:00 DCW (Rec: 11/10/23 16:53 DCW [id number]) Physical Therapy Assessment Impairments Impairments Activity Tolerance,Functional Activities,Functional Mobility ,Pain,ROM,Soft Tissue Mobility ,Strength Goals Three Impairment Pain limits pt's ability to sleep through the night Correction Goal (LTG) Pt to report sleeping undisturbed by pain through the night for at least four nights a week. 10/12/22: Pt reports able to sleep longer on R before R nicki pain starts. LTG Duration 11/30/23 (10/13/23 progressing) Two Impairment Right shoulder abduction limited to 136? Water Engineer Goal (LTG) Pt to improve shoulder abduction to >160? in order to return to performing pain- free overhead activities. LTG Duration 11/30/23 One Impairment Pt does not have an appropriate home exercise program Short Term Goal (STG) Pt to be independent and compliant with an appropriate HEP STG Duration 10/30/23 Assessment Summary Assessment Increased tone and tenderness today after returning from his vacation. Notable improvement in overall functional mobility/ROM following STM and joint mobs today. Still experiencing some increased overall pain. Physical Therapy Plan Frequency and Duration Frequency of Treatment 2x/Week Plan of Care Start Date 10/01/23 Plan of Care End Date 11/30/23 Therapeutic Interventions Therapeutic Interventions Home Exercise Program,Manual Therapy,Orthotic/Prosthetic Management,Patient/Caregiver Education,Soft Tissue Mobilization,Therapeutic Activities,Therapeutic Exercises Modalities Cold Pack/Ice Massage,Electric Stimulation,Hot Packs, Ultrasound Next Visit Focus/Plan Next Note Type Treatment Note Next Visit Plan Shoulder mobility, strengthening, pain-free ROM
--- NOTE | 2023-11-12 16:10 | PT.OTN ---
Current Diagnoses Pain in right shoulder (11/12/23) Stiffness of right shoulder, not elsewhere classified (11/12/23) Physical Therapy Treatment Note PT-OP-A Visit Information Start: 10/01/23 13:55 Freq: Status: Active Protocol: Document 11/12/23 13:53 NB (Rec: 11/12/23 14:38 [facility] [id number]) Out-Patient Physical Therapy Visit Information Visit Information Visit Type Treatment Note Visit Note Pt late; thought appt start was 1400 instead of 1345. Visit Start Time 13:55 Visit Stop Time 14:38 Visit Number 10 Number of AGENTS' RECORDS CLERK Visits 1 Evaluation Information Evaluation Date 10/01/23 PT-OP-B Current Condition Start: 10/01/23 13:55 Freq: Status: Active Protocol: Document 10/01/23 11:15 DCW (Rec: 10/01/23 14:22 DCW [id number]) Current Condition History of Current Condition Onset Date 5 month history Current Complaints Right shoulder pain, stiffness History of Current Condition Pt is a 58 year old male presenting with a ~5 month history of right shoulder pain . Pt notes insidious onset, no knowledge of initial injury. Pt does have a history of left shoulder injury, with surgical intervention for partial rotator cuff tear and subacromial decompression two years ago. Notes this is a similar pain. Reports fairly significant nightly sleep disturbances, worst when laying on his shoulder. Also hurts with repetitive movements (using screwdriver), reaching behind his back, or overhead movements. PT-OP-C Subjective Start: 10/01/23 13:55 Freq: Status: Active Protocol: Document 11/12/23 13:53 NB (Rec: 11/12/23 14:38 [facility] [id number]) OP-PT Subjective Patient Comments Patient Comments Yaya reports he has not done ex's since seeing PT but woke up sore today, currently 5-6/ 10 pain. It's the sleeping on it that makes it sore. I've been trying to use my L hand more. He's still stretching, icing, and heating. PT-OP-E Functional Tests Start: 10/01/23 13:55 Freq: Status: Active Protocol: Document 10/01/23 11:15 DCW (Rec: 10/01/23 14:22 DCW [id number]) Functional Tests Apley's Scratch Test Action 3- Left T5 Action 3- Right T8 PT-OP-K Range of Motion Start: 10/01/23 13:55 Freq: Status: Active Protocol: Document 10/01/23 11:15 DCW (Rec: 10/01/23 14:22 DCW [id number]) Shoulder Goniometric Range of Motion Shoulder Right Active Testing Position Standing Flexion 180 Abduction 136 External Rotation at 0 degrees Abduction 44 PT-OP-L Special Tests Start: 10/01/23 13:55 Freq: Status: Active Protocol: Document 10/01/23 11:15 DCW (Rec: 10/01/23 14:22 DCW [id number]) Special Tests Shoulder Special Tests Yergason's Biceps Test Results Mild right LH pain Passive ER Rotator Cuff Test Results Negative Painful Arc Test Results Positive R Lift-Off Rotator Cuff Test Results Mild pain R Baron Michel Impingement Test Results Negative Grind Labrum Test Results Negative Empty Can Test Results Positive R Drop Arm Rotator Cuff Test Results Negative Belly Press Test Results Mild pain R Apprehension Test Test Results Negative PT-OP-M Strength Start: 10/01/23 13:55 Freq: Status: Active Protocol: Document 10/01/23 11:15 DCW (Rec: 10/01/23 14:22 DCW [id number]) Shoulder Strength Shoulder Manual Muscle Testing Right Flexion 4- Good- Abduction (C5) 3+ Fair+ External Rotation 4+ Good+ Internal Rotation 5 Normal Comments Limited by significant pain in abduction PT-OP-Q Treatments Start: 10/01/23 13:55 Freq: Status: Active Protocol: Document 11/12/23 13:53 NBM (Rec: 11/12/23 14:38 NBM [id number]) Cardio Equipment Upper Body Ergometer (UBE) Duration (Minutes) 5 RPM 60 Seat Position 11 Height 4 Other fwd/bwd at 2.5 min Therapeutic Exercises Other Exercises Resisted Ambulation Other Exercise Name Resisted UE side-stepping Resistance Green loop Equipment Used handrail Reps/Minutes x15 ft ea Comments R UT discomfort with stepping R>L Manual Therapy Treatment Soft Tissue Mobilization right pec Body Location pec and subclavius Mobilization Type Cross-Friction,Rolling Intensity/Depth Moderate Body Position Hooklying Comments Monitored for pain Periscapular Body Location R Periscapular musclature Mobilization Type Cross-Friction,Rolling, Sustained Pressure,Other Intensity/Depth Moderate Body Position Sidelying Comments Monitored for pain hillary manual pin and stretch to R UT and LS Taping right shoulder Body Location right shoulder Treatment Focus Unload UT/levator scap, posture Type of Tape Kinesiotape Skin Inspection WNL Comments Patient ed to remove 3-5 days or immediately if skin irritation occurs. Self-Care/Home Management Treatment Education Other Education I/s in self-STM w/ tennis ball to R pec. PT-OP-R Modalities Start: 10/15/23 09:39 Freq: Status: Active Protocol: Document 11/12/23 13:53 NBM (Rec: 11/12/23 14:38 [facility] [id number]) Hot Pack/Cold Pack Treatment Cold Pack Location R shoulder Patient Position Hooklying Patient Tolerance Good Comments 10 min PT-OP-T Assessment and Plan Start: 10/01/23 13:55 Freq: Status: Active Protocol: Document 11/12/23 13:53 NBM (Rec: 11/12/23 14:38 [facility] [id number]) Physical Therapy Assessment Goals Three Impairment Pain limits pt's ability to sleep through the night Television Host Goal (LTG) Pt to report sleeping undisturbed by pain through the night for at least four nights a week. 10/13/23: Pt reports able to sleep longer on R before R nicki pain starts. 11/12/23: Pt reports sleeping on R shoulder last night caused increase soreness today up to 5-6/10 pain. LTG Duration 11/30/23 (11/12/23 progressing) Two Impairment Right shoulder abduction limited to 136? Care Home Goal (LTG) Pt to improve shoulder abduction to >160? in order to return to performing pain- free overhead activities. LTG Duration 11/30/23 One Impairment Pt does not have an appropriate home exercise program Short Term Goal (STG) Pt to be independent and compliant with an appropriate HEP STG Duration 10/30/23 Assessment Summary Assessment Pt presents w/ 5-6/10 R shoulder pain after sleeping on it last night which improves to 4/10 pain end of session. Treatment focus on KT tape for unloading UT/LS and posture, and STM to UT. Pt requires initial cues for scapular setting and upright posture for UE bandwalking but demo's improved self- awareness w/ repetition. Pt presents today with increased palpable tension in R subclavius, pec, UT and LS, which improves with STM; pt i/ s verbally in adding Subclavius and pec muscles to self-STM w/ tennis ball. Physical Therapy Plan Frequency and Duration Frequency of Treatment 2x/Week Plan of Care Start Date 10/01/23 Plan of Care End Date 11/30/23 Therapeutic Interventions Therapeutic Interventions Home Exercise Program,Manual Therapy,Orthotic/Prosthetic Management,Patient/Caregiver Education,Soft Tissue Mobilization,Therapeutic Activities,Therapeutic Exercises Modalities Cold Pack/Ice Massage,Electric Stimulation,Hot Packs, Ultrasound Next Visit Focus/Plan Next Note Type Treatment Note Next Visit Plan Shoulder mobility, strengthening, pain-free ROM
--- NOTE | 2023-11-16 16:01 | PT.OTN ---
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 Pt notes insidious onset, no knowledge of initial injury. Pt does have a history of left shoulder injury, with surgical intervention for partial rotator cuff tear and subacromial decompression two years ago. Notes this is a similar pain. Reports fairly significant nightly sleep disturbances, worst when laying on his shoulder. Also hurts with repetitive movements (using screwdriver), reaching behind his back, or overhead movements. PT-OP-C Subjective Start: 10/01/23 13:55 Freq: Status: Active Protocol: Document 11/16/23 14:49 NBM (Rec: 11/16/23 16:01 [facility] [id number]) OP-PT Subjective Patient Comments Patient Comments Yaya reports 3/10 shoulder pain which is in front instead of in back of shoulder today. He used tennis ball to pec as well as back of shoulder and found relief. He iced before coming in today but continues to have problems sleeping on shoulder. I can't sleep on back because my tongue goes back and I stop breathing. He has not been doing the neck stretches. He's using L arm more and is careful with opening cupboards above head. PT-OP-E Functional Tests Start: 10/01/23 13:55 Freq: Status: Active Protocol: Document 10/01/23 11:15 DCW (Rec: 10/01/23 14:22 DCW [id number]) Functional Tests Apley's Scratch Test Action 3- Left T5 Action 3- Right T8 PT-OP-K Range of Motion Start: 10/01/23 13:55 Freq: Status: Active Protocol: Document 10/01/23 11:15 DCW (Rec: 10/01/23 14:22 DCW [id number]) Shoulder Goniometric Range of Motion Shoulder Right Active Testing Position Standing Flexion 180 Abduction 136 External Rotation at 0 degrees Abduction 44 PT-OP-L Special Tests Start: 10/01/23 13:55 Freq: Status: Active Protocol: Document 10/01/23 11:15 DCW (Rec: 10/01/23 14:22 DCW [id number]) Special Tests Shoulder Special Tests Yergason's Biceps Test Results Mild right LH pain Passive ER Rotator Cuff Test Results Negative Painful Arc Test Results Positive R Lift-Off Rotator Cuff Test Results Mild pain R Baron Michel Impingement Test Results Negative Grind Labrum Test Results Negative Empty Can Test Results Positive R Drop Arm Rotator Cuff Test Results Negative Belly Press Test Results Mild pain R Apprehension Test Test Results Negative PT-OP-M Strength Start: 10/01/23 13:55 Freq: Status: Active Protocol: Document 10/01/23 11:15 DCW (Rec: 10/01/23 14:22 DCW [id number]) Shoulder Strength Shoulder Manual Muscle Testing Right Flexion 4- Good- Abduction (C5) 3+ Fair+ External Rotation 4+ Good+ Internal Rotation 5 Normal Comments Limited by significant pain in abduction PT-OP-Q Treatments Start: 10/01/23 13:55 Freq: Status: Active Protocol: Document 11/16/23 14:49 NBM (Rec: 11/16/23 16:01 NBM [id number]) Gym Equipment Therapeutic Ball I's, Y's, T's Exercise Details Prone I's, Y's, T's Ball Size/Color 3# Body Position Standing Reps/Duration x10 ea Comments Performed bent over using plinth for UE support. Therapeutic Exercises Sitting Exercises ER/IR Sitting Exercise Name ER/IR at 90/90 Side right Resistance 5.5# ball Equipment Used plinth elevated to shoulder height for UE support Reps/Minutes x10 Comments R shoulder pain end of set. Cervical Stretch Sitting Exercise Name 1. UT 2. LS Side bilateral Equipment Used chair for scapular stabilizing Reps/Minutes x30s ea Comments VC scap stability, upright, gentle pull only, painfree, no overpressure Other Exercises Resisted Ambulation Other Exercise Name Resisted UE side-stepping Side bilateral Resistance Green loop Equipment Used handrail Reps/Minutes x15 ft ea Comments dc'd d/t R UT pain with stepping R>L Manual Therapy Treatment Soft Tissue Mobilization right pec Body Location pec and subclavius Mobilization Type Cross-Friction,Rolling Intensity/Depth Moderate Body Position Hooklying Comments Monitored for pain Periscapular Body Location R Periscapular musclature and LH biceps Mobilization Type Cross-Friction,Rolling, Sustained Pressure,Other Intensity/Depth Moderate Body Position Sidelying Comments Monitored for pain hillary manual pin and stretch to R UT and LS Joint Mobilizations GH Joint R GH Direction Post Grade II Body Position Hooklying Self-Care/Home Management Treatment Education Patient Education Body Mechanics,Home Exercise Program,Pain Management,Safety Other Education Discussion w/ pt re: sleep positioning due to consistent pain when sleeping on side but pt states sleeping supine is not an option due to tongue sliding back stopping breathing. Upon further discussion pt previously had a mouth guard to prevent this which allowed for sleeping on back. Pt encouraged to consider pursueing a new guard to allow for sleeping on back . Semi-reclined declined due to discomfort. PT-OP-R Modalities Start: 10/15/23 09:39 Freq: Status: Active Protocol: Document 11/12/23 13:53 NBM (Rec: 11/12/23 14:38 NB [id number]) Hot Pack/Cold Pack Treatment Cold Pack Location R shoulder Patient Position Hooklying Patient Tolerance Good Comments 10 min PT-OP-T Assessment and Plan Start: 10/01/23 13:55 Freq: Status: Active Protocol: Document 11/16/23 14:49 NBM (Rec: 11/16/23 16:01 NB [id number]) Physical Therapy Assessment Goals Three Impairment Pain limits pt's ability to sleep through the night Skilled Nursing Goal (LTG) Pt to report sleeping undisturbed by pain through the night for at least four nights a week. 10/13/23: Pt reports able to sleep longer on R before R nicki pain starts. 11/12/23: Pt reports sleeping on R shoulder last night caused increase soreness today up to 5-6/10 pain. 11/16/23: no change. Pt to consider mouth guard for allowing option to sleep on back. LTG Duration 11/30/23 (11/12/23 progressing) Two Impairment Right shoulder abduction limited to 136? Skilled Nursing Goal (LTG) Pt to improve shoulder abduction to >160? in order to return to performing pain- free overhead activities. 11/16/2023: 158 deg pain-free, 175 deg w/ pain. LTG Duration 11/30/23 One Impairment Pt does not have an appropriate home exercise program Short Term Goal (STG) Pt to be independent and compliant with an appropriate HEP STG Duration 10/30/23 Assessment Summary Assessment Pt presents w/ R shoulder pain 10/16 after icing at home, having awaken with increased R shoulder soreness after sleeping on it. Pt is able to perform R shoulder abduction to 158 deg pain free and up to 175 deg w/ pain. Treatment focus on STM, self-care and shoulder strengthening. Palpable tension to R UT improves w/ STM, particularly manual pin and stretch to R UT and LS. Pt reminded of seated cervical stretches in HEP and reviewed w/ good form. Pt also encouraged to consider a new mouthguard to allow for option of sleeping on back to reduce instances of aggravating shoulder pain due to sleeping on side. TherEx end of session with UE bandwalking discontinued due to pt complaint of R shoulder pain. Physical Therapy Plan Frequency and Duration Frequency of Treatment 2x/Week Plan of Care Start Date 10/01/23 Plan of Care End Date 11/30/23 Therapeutic Interventions Therapeutic Interventions Home Exercise Program,Manual Therapy,Orthotic/Prosthetic Management,Patient/Caregiver Education,Soft Tissue Mobilization,Therapeutic Activities,Therapeutic Exercises Modalities Cold Pack/Ice Massage,Electric Stimulation,Hot Packs, Ultrasound Next Visit Focus/Plan Next Note Type Treatment Note Next Visit Plan Follow up on mouth guard option to allow for sleeping on back. POC: Shoulder mobility, strengthening, pain-free ROM
--- NOTE | 2023-11-24 12:49 | PT.OTN ---
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 Pt notes insidious onset, no knowledge of initial injury. Pt does have a history of left shoulder injury, with surgical intervention for partial rotator cuff tear and subacromial decompression two years ago. Notes this is a similar pain. Reports fairly significant nightly sleep disturbances, worst when laying on his shoulder. Also hurts with repetitive movements (using screwdriver), reaching behind his back, or overhead movements. PT-OP-C Subjective Start: 10/01/23 13:55 Freq: Status: Active Protocol: Document 11/24/23 12:05 DCW (Rec: 11/24/23 12:49 DCW [id number]) OP-PT Subjective Patient Comments Patient Comments Since my last appointment, my shoulder has been feeling better than it has in a long time. I still can't sleep on it, though. I tried last night , and kind of irritated it. PT-OP-E Functional Tests Start: 10/01/23 13:55 Freq: Status: Active Protocol: Document 10/01/23 11:15 DCW (Rec: 10/01/23 14:22 DCW [id number]) Functional Tests Kareney's Scratch Test Action 3- Left T5 Action 3- Right T8 PT-OP-K Range of Motion Start: 10/01/23 13:55 Freq: Status: Active Protocol: Document 10/01/23 11:15 DCW (Rec: 10/01/23 14:22 DCW [id number]) Shoulder Goniometric Range of Motion Shoulder Right Active Testing Position Standing Flexion 180 Abduction 136 External Rotation at 0 degrees Abduction 44 PT-OP-L Special Tests Start: 10/01/23 13:55 Freq: Status: Active Protocol: Document 10/01/23 11:15 DCW (Rec: 10/01/23 14:22 DCW [id number]) Special Tests Shoulder Special Tests Yergason's Biceps Test Results Mild right LH pain Passive ER Rotator Cuff Test Results Negative Painful Arc Test Results Positive R Lift-Off Rotator Cuff Test Results Mild pain R Barno Michel Impingement Test Results Negative Grind Labrum Test Results Negative Empty Can Test Results Positive R Drop Arm Rotator Cuff Test Results Negative Belly Press Test Results Mild pain R Apprehension Test Test Results Negative PT-OP-M Strength Start: 10/01/23 13:55 Freq: Status: Active Protocol: Document 10/01/23 11:15 DCW (Rec: 10/01/23 14:22 DCW [id number]) Shoulder Strength Shoulder Manual Muscle Testing Right Flexion 4- Good- Abduction (C5) 3+ Fair+ External Rotation 4+ Good+ Internal Rotation 5 Normal Comments Limited by significant pain in abduction PT-OP-Q Treatments Start: 10/01/23 13:55 Freq: Status: Active Protocol: Document 11/24/23 12:05 DCW (Rec: 11/24/23 12:49 DCW [id number]) Cardio Equipment Upper Body Ergometer (UBE) Duration (Minutes) 5 RPM 60 Seat Position 11 Height 4 Other fwd/bwd at 2.5 min Therapeutic Exercises Other Exercises Body Blade Other Exercise Name Flexion, Abduction Side right Resistance Yellow Manual Therapy Treatment Soft Tissue Mobilization right pec Body Location pec and subclavius Mobilization Type Cross-Friction,Rolling Intensity/Depth Moderate Body Position Hooklying Comments Monitored for pain Periscapular Body Location R Periscapular musclature and LH biceps Mobilization Type Cross-Friction,Rolling, Sustained Pressure,Other Intensity/Depth Moderate Body Position Sidelying Comments Monitored for pain hillary manual pin and stretch to R UT and LS Joint Mobilizations A/C Joint R A/C Grade II GH Joint R GH Direction Post Grade II Body Position Hooklying PT-OP-R Modalities Start: 10/15/23 09:39 Freq: Status: Active Protocol: Document 11/12/23 13:53 NBM (Rec: 11/12/23 14:38 NBM [id number]) Hot Pack/Cold Pack Treatment Cold Pack Location R shoulder Patient Position Hooklying Patient Tolerance Good Comments 10 min PT-OP-T Assessment and Plan Start: 10/01/23 13:55 Freq: Status: Active Protocol: Document 11/24/23 12:05 DCW (Rec: 11/24/23 12:49 DCW [id number]) Physical Therapy Assessment Goals Three Impairment Pain limits pt's ability to sleep through the night Clinical Informatics Director Goal (LTG) Pt to report sleeping undisturbed by pain through the night for at least four nights a week. 10/13/23: Pt reports able to sleep longer on R before R nicki pain starts. 11/12/23: Pt reports sleeping on R shoulder last night caused increase soreness today up to 5-6/10 pain. 11/16/23: no change. Pt to consider mouth guard for allowing option to sleep on back. LTG Duration 11/30/23 (11/12/23 progressing) Two Impairment Right shoulder abduction limited to 136? Nursing Home Goal (LTG) Pt to improve shoulder abduction to >160? in order to return to performing pain- free overhead activities. 11/16/2023: 158 deg pain-free, 175 deg w/ pain. LTG Duration 11/30/23 One Impairment Pt does not have an appropriate home exercise program Short Term Goal (STG) Pt to be independent and compliant with an appropriate HEP STG Duration 10/30/23 Assessment Summary Assessment Sleeping on the shoulder continues to be the thing that aggravates it the most, but overall showing good improvements with ROM and pain levels. Physical Therapy Plan Frequency and Duration Frequency of Treatment 2x/Week Plan of Care Start Date 10/01/23 Plan of Care End Date 11/30/23 Therapeutic Interventions Therapeutic Interventions Home Exercise Program,Manual Therapy,Orthotic/Prosthetic Management,Patient/Caregiver Education,Soft Tissue Mobilization,Therapeutic Activities,Therapeutic Exercises Modalities Cold Pack/Ice Massage,Electric Stimulation,Hot Packs, Ultrasound Next Visit Focus/Plan Next Note Type Progress Note Next Visit Plan Follow up on mouth guard option to allow for sleeping on back. POC: Shoulder mobility, strengthening, pain-free ROM
--- NOTE | 2023-11-30 10:28 | PT.OTN ---
Current Diagnoses Pain in right shoulder (11/30/23) Stiffness of right shoulder, not elsewhere classified (11/30/23) Physical Therapy Treatment Note PT-OP-A Visit Information Start: 10/01/23 13:55 Freq: Status: Active Protocol: Document 11/30/23 09:45 DCW (Rec: 11/30/23 10:28 DCW [id number]) Out-Patient Physical Therapy Visit Information Visit Information Visit Type Discharge Summary Visit Start Time 09:45 Visit Stop Time 10:30 Visit Number 13 Number of MOPHEAD SEWER Visits 0 Evaluation Information Evaluation Date 10/01/23 PT-OP-B Current Condition Start: 10/01/23 13:55 Freq: Status: Active Protocol: Document 10/01/23 11:15 DCW (Rec: 10/01/23 14:22 DCW [id number]) Current Condition History of Current Condition Onset Date 5 month history Current Complaints Right shoulder pain, stiffness History of Current Condition Pt is a 58 year old male presenting with a ~5 month history of right shoulder pain . Pt notes insidious onset, no knowledge of initial injury. Pt does have a history of left shoulder injury, with surgical intervention for partial rotator cuff tear and subacromial decompression two years ago. Notes this is a similar pain. Reports fairly significant nightly sleep disturbances, worst when laying on his shoulder. Also hurts with repetitive movements (using screwdriver), reaching behind his back, or overhead movements. PT-OP-C Subjective Start: 10/01/23 13:55 Freq: Status: Active Protocol: Document 11/30/23 09:45 DCW (Rec: 11/30/23 10:28 DCW [id number]) OP-PT Subjective Patient Comments Patient Comments Pt reports his shoulder continues tofeel better overall, but still unable to sleep on it. PT-OP-E Functional Tests Start: 10/01/23 13:55 Freq: Status: Active Protocol: Document 11/30/23 09:45 DCW (Rec: 11/30/23 09:52 DCW [id number]) Functional Tests Kareney's Scratch Test Action 3- Left T5 Action 3- Right T8 PT-OP-K Range of Motion Start: 10/01/23 13:55 Freq: Status: Active Protocol: Document 11/30/23 09:45 DCW (Rec: 11/30/23 09:52 DCW [id number]) Shoulder Goniometric Range of Motion Shoulder Right Active Testing Position Standing Flexion 180 Abduction 148 External Rotation at 0 degrees Abduction 60 PT-OP-L Special Tests Start: 10/01/23 13:55 Freq: Status: Active Protocol: Document 11/30/23 09:45 DCW (Rec: 11/30/23 09:52 DCW [id number]) Special Tests Shoulder Special Tests Yergason's Biceps Test Results Mild right LH pain Passive ER Rotator Cuff Test Results Negative Painful Arc Test Results Negative Lift-Off Rotator Cuff Test Results Mild pain R Baron Michel Impingement Test Results Mild pain R Grind Labrum Test Results Negative Empty Can Test Results Positive R Drop Arm Rotator Cuff Test Results Negative Belly Press Test Results Positive R Apprehension Test Test Results Negative PT-OP-M Strength Start: 10/01/23 13:55 Freq: Status: Active Protocol: Document 11/30/23 09:45 DCW (Rec: 11/30/23 09:52 DCW [id number]) Shoulder Strength Shoulder Manual Muscle Testing Right Flexion 4 Good Abduction (C5) 4- Good- External Rotation 4+ Good+ Internal Rotation 5 Normal Comments Limited by pain in abduction PT-OP-Q Treatments Start: 10/01/23 13:55 Freq: Status: Active Protocol: Document 11/30/23 09:45 DCW (Rec: 11/30/23 10:28 DCW [id number]) Cardio Equipment Upper Body Ergometer (UBE) Duration (Minutes) 5 RPM 60 Seat Position 11 Height 5 Other fwd/bwd at 2.5 min Gym Equipment Cable Column (Body Solid) Lat Pull Down Resistance 30# Therapeutic Exercises Standing Exercises ER/IR Standing Exercise Name ER/IR in 90/90 Side bilateral Resistance Edgar Manual Therapy Treatment Soft Tissue Mobilization right pec Body Location pec and subclavius Mobilization Type Cross-Friction,Rolling Intensity/Depth Moderate Body Position Hooklying Comments Monitored for pain Periscapular Body Location R Periscapular musclature and LH biceps Mobilization Type Cross-Friction,Rolling, Sustained Pressure,Other Intensity/Depth Moderate Body Position Sidelying Comments Monitored for pain hillary manual pin and stretch to R UT and LS Joint Mobilizations A/C Joint R A/C Grade II GH Joint R GH Direction Post Grade II Body Position Hooklying PT-OP-R Modalities Start: 10/15/23 09:39 Freq: Status: Active Protocol: Document 11/12/23 13:53 NBM (Rec: 11/12/23 14:38 NBM [id number]) Hot Pack/Cold Pack Treatment Cold Pack Location R shoulder Patient Position Hooklying Patient Tolerance Good Comments 10 min PT-OP-T Assessment and Plan Start: 10/01/23 13:55 Freq: Status: Active Protocol: Document 11/30/23 09:45 DCW (Rec: 11/30/23 10:28 DCW [id number]) Physical Therapy Assessment Goals Three Impairment Pain limits pt's ability to sleep through the night Retirement Goal (LTG) Pt to report sleeping undisturbed by pain through the night for at least four nights a week. 10/13/23: Pt reports able to sleep longer on R before R nicki pain starts. 11/12/23: Pt reports sleeping on R shoulder last night caused increase soreness today up to 5-6/10 pain. 11/16/23: no change. Pt to consider mouth guard for allowing option to sleep on back. LTG Duration 11/30/23 (11/12/23 progressing) Two Impairment Right shoulder abduction limited to 136? Retirement Goal (LTG) Pt to improve shoulder abduction to >160? in order to return to performing pain- free overhead activities. 11/16/2023: 158 deg pain-free, 175 deg w/ pain. LTG Duration 11/30/23 One Impairment Pt does not have an appropriate home exercise program Short Term Goal (STG) Pt to be independent and compliant with an appropriate HEP STG Duration 10/30/23 Assessment Summary Assessment Pt making some mild improvements, abduction has improved, but still limited by pain. Same special tests are positive now that were positive during initial evaluation, although pt admits that they seem to create less severe pain. At this point, pt may benefit from return to PCP for further imaging or referral to Ortho. Physical Therapy Plan Frequency and Duration Frequency of Treatment 2x/Week Plan of Care Start Date 10/01/23 Plan of Care End Date 11/30/23 Therapeutic Interventions Therapeutic Interventions Home Exercise Program,Manual Therapy,Orthotic/Prosthetic Management,Patient/Caregiver Education,Soft Tissue Mobilization,Therapeutic Activities,Therapeutic Exercises Modalities Cold Pack/Ice Massage,Electric Stimulation,Hot Packs, Ultrasound Discharge Physical Therapy Discharge Reasons Plateau in Progress Next Visit Focus/Plan Next Note Type Discharge Summary
== END 2023-12-07 14:29 | disposition home or self-care (01) ==
LOC: PHYS 09:45
PROVIDERS: Family Provider Internal Medicine; PCP Family Medicine; Referring Provider Internal Medicine; Visit Provider Internal Medicine
DX: M25.511 Pain in right shoulder (principal); M25.611 Stiffness of right shoulder, not elsewhere classified
CPT/HCPCS: 97110; 97140; 97161; 97535

== ENCOUNTER 2023-12-15 07:27 | Outpatient (CLI) | payer OTHER, SELFPAY ==
[2023-12-15] VITALS (8 sets, daily range): BP systolic 120–155; BP diastolic 68–93; PULSE 17–72; RESP 15–19; TEMP 36.1; O2SAT 96–99
--- NOTE | 2023-12-15 08:00 | DI.RAD.S_ITS ---
PROCEDURE: PAIN L INTERLAMINAR/CAUDAL INJ INDICATIONS: RADICULOPATHY COMPARISON: [facility], XA, PAIN L INTERLAMINAR/CAUDAL INJ, 01/27/2023, 14:33. FINDINGS: Fluoroscopic spot filming was performed to verify placement of spinal needles at the L5-S1 level(s), as labeled on the films. Appropriate location(s) of the needle tip(s) was confirmed by injection of iodinated contrast. IMPRESSION: Intraoperative guidance provided. Dictated by: Sin Espino M.D. on 12/15/2023 at 12:05 Approved by: Sin Espino M.D. on 12/15/2023 at 12:07
[2023-12-15] MEDS: MIDAZOLAM 2 MG/2 ML VIAL IV (08:05)
[2023-12-15] MEDS: DEXAMETHASONE 10 MG/ML VIAL INJ (08:07)
[2023-12-15] MEDS: iopamidoL 15 ML VIAL 3 ML INJ (08:07)
--- NOTE | 2023-12-15 12:25 | P.PCN_ITS ---
Date/Time/Diagnoses Date of procedure: 12/15/23 Time of procedure: 08:00 Procedure Notes Physician: Javier Zamora Total Fluoroscopy time (seconds): 12 Total sedation minutes: 10 Procedure in detail & Post-procedure care: L5-S1 Interlaminar Epidural Steroid Injection Indications: Luis Manuel is presenting for treatment of lumbar radiculopathy with low back and leg pain. Preoperative diagnosis: Lumbar radiculopathy Postoperative diagnosis: Same Focused Examination: Ax3 Mood and affect are normal Vital Signs: VSS ASA: 2 Consent: Following review of allergies and potential side effects/complications, including, but not necessarily limited to, infection, allergic reaction, local tissue breakdown, stroke, temporary or permanent nerve injury, paralysis, and possible , the patient indicated that they understood and agreed to proceed.? An informed consent document was signed by the patient, witnessed by a nurse and placed in the patient's chart.? Additionally, other treatment options including medications and physical therapy were reviewed with the patient. All questions were answered. Site was then marked. Anesthesia: After review of previous anesthetic history and IV conscious sedation, the patient was deemed safe to proceed with today's procedure with IV conscious sedation. IV sedation was accomplished with midazolam 2 mg administered by the RN after order by Dr. Zamora. Sedation was titrated to patient comfort during the course of the procedure. Patient remained responsive to all verbal commands. Position: Prone Monitoring: NIBP, Pulse oximetry, 3 lead EKG Needle used: 18 G 3.5? Tuohy Contrast: Isovue 300M Injectate: Dexamethasone 10 mg with 1% lidocaine 2 mL Technique: The skin was prepped with chloraprep and then draped in a sterile fashion. Time out was performed as per protocol. Oxygen applied via NC. Skin and subcutaneous structures of the needle entry site was then infiltrated with 3 mL of lidocaine 1%. Under AP, lateral and contralateral oblique fluoroscopic control, the Tuohy needle was guided into the L5-S1 epidural space. The space was accessed with loss of resistance technique. Isovue 300M was then injected and the spread was consistent with the epidural space. There was no evidence for intravascular or intrathecal uptake. After negative aspiration, the above- mentioned injectate was then slowly administered and the needle withdrawn. The patient expressed no unusual discomfort or paresthesias during the injection. Band-Aids applied to injection sites. EBL: less than 1 ml Complications: None Post Procedure: Patient was taken to the recovery and monitored. The patient was provided a Pain Log to continue to record the patient's response to the target- specific procedure prior to the patient's follow-up visit with the referring physician. Patient was stable upon discharge. Detailed post procedure instructions were provided. Patient was asked to call in the event of worsening pain, fever, weakness, numbness or bladder or bowel incontinence.
== END 2023-12-15 08:40 | disposition home or self-care (01) ==
PROVIDERS: Family Provider Internal Medicine; PCP Family Medicine; Referring Provider Anesthesiology; Visit Provider Anesthesiology
DX: M54.16 Radiculopathy, lumbar region (principal)
CPT/HCPCS: 62323; 99152; J1100; J2250

== ENCOUNTER → 2024-03-02 10:35 | Outpatient (CLI) | payer OTHER, SELFPAY ==
--- NOTE | 2024-03-02 10:37 | DI.MRI.S_ITS ---
PROCEDURE: MR SHOULDER RT WO CON INDICATIONS: CALCIFIC TENDONITIS, R/O ROTATOR CUFF TEAR TECHNIQUE: Noncontrast oblique coronal T2 fast spin echo with fat saturation, oblique sagittal T1 spin echo and T2 fast spin echo with fat saturation, axial T1 spin echo and T2 fast spin echo with fat saturation through the shoulder. COMPARISON: [facility] Outside [facility], CR, XR SHOULDER 2+ VIEWS RIGHT, 07/05/2023, 8:48. [facility], MR, MR SHOULDER LT WO CON, 08/18/2021, 12:24. FINDINGS: Image quality: Excellent. Rotator cuff: In the supraspinatus, there is mild tendinosis of the mid and posterior fiber, without tear. The infraspinatus is unremarkable. The teres minor is unremarkable. The subscapularis is unremarkable. No muscle edema or fatty atrophy. Bones and bursae: Moderate degenerative changes of the acromioclavicular joint. Type 2 acromion. No os acromiale. Trace subacromial/subdeltoid bursitis. Moderate subchondral cystic changes in the greater tuberosity, reactive. No acute fracture. Capsule and soft tissues: Tear of the anterior superior labrum. The extra-articular biceps tendon is intact. The intra-articular biceps tendon is intact as well. No significant glenohumeral effusion. No intra-articular body. IMPRESSION: 1. Mild tendinosis of supraspinatus, without tear. 2. Moderate degenerative changes of the acromioclavicular joint. 3. Anterior superior labral tear. Dictated by: Kely Herrmann M.D. on 03/02/2024 at 14:16 Approved by: Kely Herrmann M.D. on 03/02/2024 at 14:23
== END ==
PROVIDERS: Family Provider Internal Medicine; PCP Family Medicine; Referring Provider Orthopaedic Surgery; Visit Provider Orthopaedic Surgery
DX: M75.31 Calcific tendinitis of right shoulder (principal); S43.491A Other sprain of right shoulder joint, initial encounter
CPT/HCPCS: 73221

== ENCOUNTER → 2024-03-08 07:44 | Outpatient (CLI) | payer MEDICARE, OTHER, SELFPAY ==
[2024-03-08 08:33] LABS: COVID-19 CEPHEID 4-PLEX PCR Negative (Negative); Influenza A - CEPHEID Flu A NEGATIVE (NEGATIVE); Influenza B - CEPHEID Flu B NEGATIVE (NEGATIVE); Respiratory Syncytial Virus Negative (Negative)
== END ==
PROVIDERS: Family Provider Internal Medicine; PCP Family Medicine; Visit Provider Nurse Practitioner Family
DX: R05.1 Acute cough (principal)
CPT/HCPCS: 0241U

== ENCOUNTER → 2024-09-02 08:31 | Outpatient (CLI) | payer MEDICARE, OTHER, SELFPAY ==
[2024-09-02 10:38] LABS: Alanine Aminotransferase 57 IU/L (<50); Albumin 4.8 g/dL (3.5-5.0); Albumin Globulin Ratio 1.9 (1.0-2.8); Alkaline Phosphatase 51 U/L (38-126); Aspartate Aminotransferase 40 IU/L (17-59); BUN Creatinine Ratio 13.8 (6-22); Blood Urea Nitrogen 13 mg/dL (9-20); Calcium 9.7 mg/dL (8.4-10.2); Carbon Dioxide 28 mmol/L (22-32); Chloride 100 mmol/L (98-107); Cholesterol 145 mg/dL (140-199); Estimated Glomerular Filt Rate > 60 mL/min (>60); Globulin 2.5 g/dL (1.7-4.1); Glucose 94 mg/dL (80-110); HDL Cholesterol 40 mg/dL (40-60); HEMOLYSIS < 15 (0-50); LDL Cholesterol Calculated 79 mg/dL (<100); Potassium 4.6 mmol/L (3.4-5.1); Sodium 137 mmol/L (137-145); Total Protein 7.3 g/dL (6.3-8.2); Triglycerides 129 mg/dL (35-150)
== END ==
PROVIDERS: Family Provider Internal Medicine; PCP Family Medicine; Referring Provider Family Medicine; Visit Provider Family Medicine
DX: E78.5 Hyperlipidemia, unspecified (principal); I10 Essential (primary) hypertension
CPT/HCPCS: 36415; 80053; 80061

== ENCOUNTER 2024-11-09 09:56 | Day surgery (SDC) | payer OTHER, SELFPAY ==
--- NOTE | 2024-11-09 | PATH_ITS ---
[facility] Accession Number: [id number] No. of containers..01 Tissue . 01 Material submitted: . colon - DESCENDING POLYPS . 01 Diagnosis: DESCENDING COLON: Tubular adenomas. MRV 11/10/2024 1537 Local . 01 Electronically signed: . Berenice Irizarry DO, Pathologist NPI- [id number] . 01 Gross description: . DESCENDING POLYPS: Received in formalin are 2 fragment(s) of pretty, soft tissue measuring 0.5 x 0.4 x 0.2 cm to 1.1 x 0.5 x 0.2 cm submitted entirely in 1 cassette(s) /[place] 11/09/2024 2335 Local . 01 Pathologist provided ICD-10: Z12.11 . 01 CPT . 279369 Specimen Comment: A courtesy copy of this report has been sent to [phone] Performed at: [address] [facility] [address], [place], [place] [id number] MD Corbin Sheppard MD Phone: [phone]
[2024-11-09 10:44] VITALS: BP 140/89; PULSE 63; RESP 16; TEMP 36.3; O2SAT 97
[2024-11-09] MEDS: LACTATED RINGERS 1,000 ML 42 ML IV (10:55)
--- NOTE | 2024-11-09 11:31 | P.HP_ITS ---
History of Present Illness History of Present Illness Date Patient Seen: 11/09/24 Time Patient Seen: 11:31 Chief complaint: Screening Colonoscopy Narrative: Luis Manuel is a 59-year-old man with a history of polyps. See office note for details. [facility] Medical History Bronchitis Right leg pain Encounter for wellness examination in adult Medicare annual wellness visit, subsequent Lumbar foraminal stenosis Lumbar radiculopathy Lumbar spondylosis Anemia Well adult exam Impingement syndrome, shoulder, left Spinal stenosis Osteoporosis Depression PASCUAL (obstructive sleep apnea) Anxiety and depression (~2019) Shoulder pain (~2009) Lumbar spine pain (~2002) Chronic back pain (~2002) Mumps Tinnitus (~2002) Colon polyps (~2016) Elevated LFTs Hyperlipidemia Hypertension Surgical History Hx of arthroscopy of shoulder (~2016) Hx of laminectomy Anesthesia History of shoulder surgery (~2014) History of lumbar laminectomy (~2004) Family History Father History of heart disease Social History (Updated 10/02/24 @ 10:56 by Aida Monge MA) marital status: details: Father number of children: 1 household members: spouse lives independently: Yes caregiver/support person: No housing: house pets and animals: Yes education level: vocational occupational status: unemployed current occupational exposures/hazards: No 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 [employer]: [employer] special [employer] needs: No travel history: over 6 months ago leisure activities: exercise, games and reading seatbelt use: always helmet use: Yes water heater temp set < 120 deg: Yes working smoke detector in home: Yes fire extinguisher in home: Yes carbon monox detector in home: Yes firearms in home: No do you feel safe at home: Yes Smoking Status: Never smoker alcohol intake: current substance use type: does not use during the past year weight has: remained stable well-balanced diet: daily or most days daily servings fruits/ve-4 caffeine: Yes eating out: rarely or never Type(s) of exercise: walking frequency: daily duration: 30-45 minutes/day Meds Home Medications and Allergies Home Medications Medication Instructions Recorded Confirmed Type multivitamin (Daily Vitamin 1 tab PO DAILY 08/01/20 11/09/24 History Formula tablet) lisinopril 10 1 tab PO DAILY #90 tabs 04/21/22 11/09/24 Rx mg-hydrochlorothiazide 12.5 mg tablet cholecalciferol (vitamin D3) 50 50 mcg PO DAILY 01/20/23 11/09/24 History mcg (2,000 unit) capsule fluticasone propionate 50 1 spray intranasal DAILY 01/20/23 11/09/24 History mcg/actuation nasal spray,suspension (Allergy Relief (fluticasone)) sildenafil 100 mg tablet 100 mg PO DAILY 01/20/23 11/09/24 History atorvastatin 20 mg tablet 20 mg PO DAILY 11/08/24 11/09/24 History Allergies Allergy/AdvReac Type Severity Reaction Status Date / Time No Known Drug Allergies Allergy Verified 11/09/24 10:55 Exam Vital Signs (past 8 hours): - 11/09/24 10:44 Temperature 97.3 F L Pulse Rate 63 Respiratory Rate 16 Blood Pressure 140/89 Pulse Oximetry 97 Oxygen Delivery Method Room Air Oxygen Delivery Method Room Air Const General: No acute distress Resp Effort & Inspection: normal respiratory effort Assessment & Plan Assessment and plan (1) History of colon polyps: Status: Acute Plan Colonoscopy Time-Based Coding :: [TOTAL MINUTES] spent with patient and on the chart (including review of chart, obtaining history, exam, reviewing outside data, placing orders, documenting exam and treatment plan, and counseling patient) on [DATE]. 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
[2024-11-09 12:13] VITALS: BP 118/77; PULSE 75; RESP 18; TEMP 36.6; O2SAT 96
--- NOTE | 2024-11-09 12:15 | P.OP.COLON_ITS ---
Operative Date/Time/Diagnoses Date of procedure: 11/09/24 Time of procedure: 12:15 Pre-op diagnosis: History of colon polyps Post-op diagnosis: same Procedure & Clinicians Study performed: Colonoscopy Same procedure as scheduled: Yes Surgeon: Kenroy Rouse Procedure Notes Procedure in detail: Surgeon: Kenroy Roues MD Anesthesia: Lindsey Hoffman CRNA Procedure: The patient was brought to the endoscopy suite, placed in left lateral decubitus position. The patient was connected to monitoring devices. A time-out was performed. Sedation was administered. Once the patient was adequately sedated, a digital rectal exam was performed and was normal. The scope was then inserted and advanced to the cecum where the appendiceal orifice was identified and photographed. The scope was then slowly withdrawn over greater than 6 minutes. The mucosa was thoroughly inspected. There were 2 s mall polyps in the descending colon removed with a cold snare and sent together. The scope was retroflexed in the rectum. No other abnormalities were found. The scope was straightened and removed. The patient was awakened and brought to recovery. Scope withdrawal time: 11 minutes Sedation time: 14 minutes EBL: 5 mL Findings: 2 small descending colon polyps Post-procedure Disposition: PACU
[2024-11-09 12:18] VITALS: BP 134/65; PULSE 81; RESP 18; TEMP 36.4; O2SAT 96
[2024-11-09 12:23] VITALS: BP 141/97; PULSE 70; RESP 15; TEMP 36.4; O2SAT 99
== END 2024-11-09 12:35 | disposition home or self-care (01) ==
PROVIDERS: Family Provider Internal Medicine; PCP Internal Medicine; Referring Provider Surgery; Visit Provider Surgery
PROC: 0DJD8ZZ Inspection of Lower Intestinal Tract, Via Natural or Artificial Opening Endoscopic (ICD-10-PCS; CPT 45378; principal; 2024-11-09 11:00)
DX: Z12.11 Encounter for screening for malignant neoplasm of colon (principal); Z86.0100 Personal history of colon polyps, unspecified; D12.4 Benign neoplasm of descending colon
CPT/HCPCS: 45385; J2704